=== PATIENT | male | born 1985 | race Caucasian/White ===

== ENCOUNTER 2017-04-15 12:58 | Emergency (ER) | payer OTHER ==
[2017-04-15 13:05] VITALS: BP 143/92
--- NOTE | 2017-04-15 13:40 | ER Document Report ---
HPI - HPI Patient complains to provider of: medications refill Onset: Yesterday Quality of pain: No pain Pain Level: Denies Context: 31-year-old male presents to ED for refill on clonazepam and Seroquel. Instructed patient we do not usually fill these but he states he is completely out and cannot give more until Sunday. I have written him a prescription for 2 days of each. Associated Symptoms: Other - He states he took his last Seroquel and clonazepam Sunday. I get them refilled until Sunday when he can go and see his primary doctor Exacerbated by: Denies Relieved by: Denies Similar symptoms previously: Yes Recently seen / treated by doctor: No - ROS ROS below otherwise negative: Yes - CONSTITUTIONAL Constitutional: DENIES: Fever, Chills - EENT EENT: DENIES: Sore Throat, Ear Pain, Nasal Drainage-Clear, Nasal Drainage- Purulent, Congestion, Eye problems - NEURO Neurology: DENIES: Headache, Weakness, Vision blurred, Dizzinesss / Vertigo - CARDIOVASCULAR Cardiovascular: DENIES: Chest pain - RESPIRATORY Respiratory: DENIES: Trouble Breathing, Coughing - GASTROINTESTINAL Gastrointestinal: DENIES: Abdominal Pain, Nausea, Patient vomiting, Diarrhea, Constipation, Black / Bloody Stools - URINARY Urinary: DENIES: Dysuria, Urgency, Frequency - REPRODUCTIVE Reproductive: DENIES: :, Postmenopausal, Abnormal bleeding / discharge - MUSCULOSKELETAL Musculoskeletal: DENIES: Extremity pain, Back Pain, Neck Pain, Swelling - DERM Skin Color: Normal Skin Problems: None Past Medical History - General Information source: Patient - Social History Smoking Status: Current Every Day Smoker Cigarette use (# per day): Yes Smoking Education Provided: Yes - less than 2 min Frequency of alcohol use: None Drug Abuse: None Occupation: disabled Lives with: Friend Family History: CVA, Malignancy Patient has suicidal ideation: No Patient has homicidal ideation: No - Past Medical History Cardiac Medical History: Reports: None Pulmonary Medical History: Reports: None Neurological Medical History: Reports: Hx Seizures Endocrine Medical History: Reports: None Renal/ Medical History: Reports: None Malignancy Medical History: Reports None GI Medical History: Reports: Hx Gastroesophageal Reflux Disease Musculoskeltal Medical History: Reports Hx Musculoskeletal Deformity Skin Medical History: Reports None Psychiatric Medical History: Reports: Hx Post Traumatic Stress Disorder Traumatic Medical History: Reports: Hx Traumatic Brain Injury Infectious Medical History: Reports: None Surgical Hx: Negative Past Surgical History: Reports: None Vertical Provider Document - CONSTITUTIONAL Agree With Documented VS: Yes Exam Limitations: No Limitations General Appearance: WD/WN - INFECTION CONTROL TRAVEL OUTSIDE OF THE [place] IN LAST 30 DAYS: No - HEENT HEENT: Atraumatic, Normal ENT Exam, Normocephalic, PERRLA - NECK Neck: Normal Inspection - RESPIRATORY O2 Sat by Pulse Oximetry: 100 - CARDIOVASCULAR Cardiovascular: Regular Rate, Regular Rhythm - GI/ABDOMEN Gastrointestinal: Abdomen Soft, Abdomen Non-Tender, Abdomen Tender, No Organomegaly - MUSCULOSKELETAL/EXTREMETIES Musculoskeletal/Extremeties: JANINE MIGUEL - NEURO Level of Consciousness: Awake, Alert, Appropriate Motor/Sensory: No Motor Deficit, No Sensory Deficit Deep Tendon Reflexes: 2+ - DERM Integumentary: Warm, Dry, No Rash Course - Re-evaluation Re-evalutation: 04/15/17 14:09 I dated in [place] called for the clonazepam prescription they stated his prescription was 1 mg twice daily. He was written for 2 days supply. Rom in [place] was called for Seroquel prescription. they stated he had filled a prescription for 300 mg nightly 2 day supply of that was written. Patient is [facility] to get further medications. - Vital Signs Vital signs: Temp Pulse Resp BP Pulse Ox 98.3 F 97 18 143/92 H 100 04/15/17 13:02 04/15/17 13:02 04/15/17 13:02 04/15/17 13:02 04/15/17 13:02 Discharge - Discharge Clinical Impression: Encounter for medication refill Additional Instructions: You were seen today because she states you are out of her clonazepam and Seroquel states she could refill both of these on Tuesdays at your primary doctor. He will be given a 2 day supply of these 2 medication. FOLLOW-UP CARE: Call your primary doctor first thing Sunday morning and get an appointment to refill your prescriptions able to give you enough for today and tomorrow If you have been referred to a physician for follow-up care, call the physician s office for an appointment as you were instructed or within the next two days. If you experience worsening or a significant change in your symptoms, notify the physician immediately or return to the Emergency Department at any time for re-evaluation. Prescriptions: Quetiapine Fumarate [Seroquel] 300 mg PO QHS #2 tablet Clonazepam [Klonopin] 1 mg PO BID #5 tablet Forms: Elevated Blood Pressure, Smoking Cessation Education
== END 2017-04-15 13:59 | disposition home or self-care (01) ==
LOC: ER 12:58
DX: Z76.0 Encounter for issue of repeat prescription (principal); F43.10 Post-traumatic stress disorder, unspecified; F17.210 Nicotine dependence, cigarettes, uncomplicated
CPT/HCPCS: 99281

== ENCOUNTER 2017-04-27 14:45 | Emergency (ER) | payer OTHER ==
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
[2017-04-27 16:23] LABS: ABSOLUTE EOSINOPHILS # (AUTO) 0.1 10^3/uL (0.0-0.6); ABSOLUTE LYMPHOCYTES (AUTO) 2.4 10^3/uL (0.5-4.7); ABSOLUTE MONOCYTES (AUTO) 0.4 10^3/uL (0.1-1.4); ABSOLUTE NEUT (AUTO) 4.5 10^3/uL (1.7-8.2); BASOPHILS % (AUTO) 0.7 % (0-2); EOSINOPHILS % (AUTO) 1.2 % (0-6); HEMATOCRIT 39.6 % (37.9-51.0); HEMOGLOBIN 13.7 g/dL (13.5-17.0); HGB HCT DIFFERENCE 1.5; MEAN CORPUSCULAR HEMOGLOBIN 31.8 pg (27.0-33.4); MEAN CORPUSCULAR HGB CONC 34.5 g/dL (32.0-36.0); MEAN CORPUSCULAR VOLUME 92 fl (80-97); MONOCYTES % (AUTO) 5.3 % (3-13); RED CELL DISTRIBUTION WIDTH 14.1 % (11.5-14.0); SEGMENTED NEUTROPHILS % (AUTO) 60.8 % (42-78); WHITE BLOOD COUNT 7.4 10^3/uL (4.0-10.5)
--- NOTE | 2017-04-27 16:33 | RADIOLOGY REPORT (SQ) ---
EXAM DESCRIPTION: CT HEAD WITHOUT COMPLETED DATE/TIME: 04/27/2017 4:08 pm REASON FOR STUDY: ams COMPARISON: None. TECHNIQUE: Axial images acquired through the brain without intravenous contrast. Images reviewed wi th bone, brain and subdural windows. Images stored on PACS. All CT scanners at this facility use dose modulation, iterative reconstruction, and/or weight based d osing when appropriate to reduce radiation dose to as low as reasonably achievable (ALARA). [facility]: Dose Right [facility]: CareDose [facility]: Dose Right [facility]: Teradose 4D [facility]: [employer] RADIATION DOSE: 131.66 mGy. LIMITATIONS: None. FINDINGS: VENTRICLES: Normal size and contour. CEREBRUM: No masses. No hemorrhage. No midline shift. Normal franklin/white matter differentiation. N o evidence for acute infarction. CEREBELLUM: No masses. No hemorrhage. No alteration of density. No evidence for acute infarction. EXTRAAXIAL SPACES: No fluid collections. No masses. ORBITS AND GLOBE: No intra- or extraconal masses. Normal contour of globe without masses. CALVARIUM: No fracture. PARANASAL SINUSES: There is deformity of the left maxillary antra. This could be congenital in natur e or be related to a prior infectious process or be posttraumatic in nature. SOFT TISSUES: No mass or hematoma. OTHER: No other significant finding. IMPRESSION: NORMAL BRAIN CT WITHOUT CONTRAST. TECHNICAL DOCUMENTATION: JOB ID: [id number] Quality ID # [id number]: Final reports with documentation of one or more dose reduction techniques (e.g., Au tomated exposure control, adjustment of the mA and/or kV according to patient size, use of iterative reconstruction technique) 2010 [employer]- All Rights Reserved
[2017-04-27 16:38] LABS: ALANINE AMINOTRANSFERASE 22 U/L (21-72); ALBUMIN 4.6 g/dL (3.5-5.0); ALCOHOL 83 mg/dL (NONE DETECTED); ALKALINE PHOSPHATASE 69 U/L (38-126); ANION GAP 17 (5-19); ASPARTATE AMINO TRANSFERASE 17 U/L (17-59); BILIRUBIN,DIRECT 0.3 mg/dL (0.0-0.4); BILIRUBIN,TOTAL 0.5 mg/dL (0.2-1.3); BLOOD UREA NITROGEN 12 mg/dL (7-20); CALCIUM 9.4 mg/dL (8.4-10.2); CARBON DIOXIDE 20 mmol/L (22-30); CHLORIDE 109 mmol/L (98-107); GLUCOSE 79 mg/dL (75-110); POTASSIUM 4.2 mmol/L (3.6-5.0); SODIUM 145.6 mmol/L (137-145); TOTAL PROTEIN 7.5 g/dL (6.3-8.2)
[2017-04-27] MEDS ORDERED: NORMAL SALINE 1000 ML 1,000 ML IV ONE (17:03)
[2017-04-27 17:20] LABS: APPEARANCE,URINE CLEAR; BILIRUBIN,URINE NEGATIVE (NEGATIVE); GLUCOSE, URINE NEGATIVE (NEGATIVE); KETONES,URINE NEGATIVE (NEGATIVE); LEUKOCYTE ESTERASE,URINE NEGATIVE (NEGATIVE); NITRITE,URINE NEGATIVE (NEGATIVE); PROTEIN,URINE NEGATIVE (NEGATIVE); URINE SPECIFIC GRAVITY 1.011; UROBILINOGEN,URINE NEGATIVE mg/dL (<2.0)
[2017-04-27 17:21] VITALS: BP 120/85
[2017-04-27 17:35] LABS: URINE BARBITURATES SCREEN NEGATIVE; URINE METHADONE SCREEN NEGATIVE; URINE OPIATES LOW NEGATIVE; URINE PHENCYCLIDINE SCREEN NEGATIVE
[2017-04-27] MEDS ORDERED: NAPROXEN 250 MG TABLET PO ONE (18:22)
--- NOTE | 2017-04-30 09:26 | EKG REPORT ---
SEVERITY:- NORMAL ECG - SINUS RHYTHM : Confirmed by: Froilan Willingham 30-Apr-2017 09:25:43
== END 2017-04-27 18:47 | disposition home or self-care (01) ==
LOC: ER 14:45
DX: F19.10 Other psychoactive substance abuse, uncomplicated (principal); F10.10 Alcohol abuse, uncomplicated; R41.82 Altered mental status, unspecified; Z79.899 Other long term (current) drug therapy; F17.200 Nicotine dependence, unspecified, uncomplicated
CPT/HCPCS: 93005; 99285; 96360; 36415; 80307 ×4; 85025; 80053; 81001; 70450; 93010; J7030

== ENCOUNTER 2017-05-20 10:54 | Emergency (ER) | payer OTHER ==
[2017-05-20 11:01] VITALS: BP 129/86
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
== END 2017-05-20 12:33 | disposition home or self-care (01) ==
LOC: ER 10:54
DX: Z76.0 Encounter for issue of repeat prescription (principal); F43.10 Post-traumatic stress disorder, unspecified; F41.9 Anxiety disorder, unspecified; F17.200 Nicotine dependence, unspecified, uncomplicated; Z87.820 Personal history of traumatic brain injury
CPT/HCPCS: 99281

== ENCOUNTER 2017-05-30 07:04 | Emergency (ER) | payer OTHER ==
[2017-05-30] MEDS ORDERED: NORMAL SALINE 1000 ML 1,000 ML IV PRN (07:20)
[2017-05-30 08:01] LABS: ABSOLUTE EOSINOPHILS # (AUTO) 0.1 10^3/uL (0.0-0.6); ABSOLUTE LYMPHOCYTES (AUTO) 1.8 10^3/uL (0.5-4.7); ABSOLUTE MONOCYTES (AUTO) 0.4 10^3/uL (0.1-1.4); ABSOLUTE NEUT (AUTO) 4.3 10^3/uL (1.7-8.2); BASOPHILS % (AUTO) 0.2 % (0-2); EOSINOPHILS % (AUTO) 1.7 % (0-6); HEMATOCRIT 43.4 % (37.9-51.0); HEMOGLOBIN 14.6 g/dL (13.5-17.0); HGB HCT DIFFERENCE 0.4; LYMPHOCYTES % (AUTO) 27.7 % (13-45); MEAN CORPUSCULAR HEMOGLOBIN 32.1 pg (27.0-33.4); MEAN CORPUSCULAR HGB CONC 33.5 g/dL (32.0-36.0); MEAN CORPUSCULAR VOLUME 96 fl (80-97); MONOCYTES % (AUTO) 5.6 % (3-13); RED BLOOD COUNT 4.54 10^6/uL (4.35-5.55); RED CELL DISTRIBUTION WIDTH 15.6 % (11.5-14.0); SEGMENTED NEUTROPHILS % (AUTO) 64.8 % (42-78); WHITE BLOOD COUNT 6.6 10^3/uL (4.0-10.5)
[2017-05-30 08:17] LABS: ALANINE AMINOTRANSFERASE 35 U/L (21-72); ALBUMIN 5.1 g/dL (3.5-5.0); ALKALINE PHOSPHATASE 74 U/L (38-126); ANION GAP 16 (5-19); ASPARTATE AMINO TRANSFERASE 30 U/L (17-59); BILIRUBIN,DIRECT 0.4 mg/dL (0.0-0.4); BILIRUBIN,TOTAL 0.5 mg/dL (0.2-1.3); BLOOD UREA NITROGEN 14 mg/dL (7-20); CALCIUM 10.1 mg/dL (8.4-10.2); CARBON DIOXIDE 22 mmol/L (22-30); CHLORIDE 106 mmol/L (98-107); CREATININE RESULT 1.09 mg/dL (0.52-1.25); GLUCOSE 75 mg/dL (75-110); POTASSIUM 4.6 mmol/L (3.6-5.0); SODIUM 143.5 mmol/L (137-145); TOTAL PROTEIN 8.3 g/dL (6.3-8.2)
[2017-05-30 08:18] LABS: ALCOHOL < 10 mg/dL (NONE DETECTED)
--- NOTE | 2017-05-30 08:21 | RADIOLOGY REPORT (SQ) ---
EXAM DESCRIPTION: CT HEAD WITHOUT COMPLETED DATE/TIME: 05/30/2017 8:04 am REASON FOR STUDY: ams hx of tbi COMPARISON: 04/27/2017 TECHNIQUE: Axial images acquired through the brain without intravenous contrast. Images reviewed wi th bone, brain and subdural windows. Images stored on PACS. All CT scanners at this facility use dose modulation, iterative reconstruction, and/or weight based d osing when appropriate to reduce radiation dose to as low as reasonably achievable (ALARA). [facility]: Dose Right [facility]: CareDose [facility]: Dose Right [facility]: Teradose 4D [facility]: [employer] RADIATION DOSE: Up-to-date CT equipment and radiation dose reduction techniques were employed. CTDIv ol: 64.6 mGy. DLP: 2326 mGy-cm. mGy. LIMITATIONS: Patient motion FINDINGS: VENTRICLES: Normal size and contour. CEREBRUM: No masses. No hemorrhage. No midline shift. Normal franklin/white matter differentiation. N o evidence for acute infarction. CEREBELLUM: No masses. No hemorrhage. No alteration of density. No evidence for acute infarction. EXTRAAXIAL SPACES: No fluid collections. No masses. ORBITS AND GLOBE: No intra- or extraconal masses. Normal contour of globe without masses. CALVARIUM: No fracture. PARANASAL SINUSES: There is deformity of the left maxillary sinus. This is not acute. SOFT TISSUES: No mass or hematoma. OTHER: No other significant finding. IMPRESSION: There is no acute intracranial pathology. The study is slightly limited. TECHNICAL DOCUMENTATION: JOB ID: [id number] Quality ID # [id number]: Final reports with documentation of one or more dose reduction techniques (e.g., Au tomated exposure control, adjustment of the mA and/or kV according to patient size, use of iterative reconstruction technique) 2010 [employer]- All Rights Reserved
[2017-05-30 08:38] LABS: VENOUS BLOOD BASE EXCESS -2.7 mmol/L; VENOUS BLOOD HCO3 22.5 mmol/L (20-32); VENOUS BLOOD PCO2 40.6 mmHg (35-63); VENOUS BLOOD PH 7.36 (7.30-7.42)
[2017-05-30 08:50] LABS: APPEARANCE,URINE CLEAR; BILIRUBIN,URINE NEGATIVE (NEGATIVE); GLUCOSE, URINE NEGATIVE (NEGATIVE); KETONES,URINE TRACE mg/dL (NEGATIVE); LEUKOCYTE ESTERASE,URINE NEGATIVE (NEGATIVE); NITRITE,URINE NEGATIVE (NEGATIVE); PROTEIN,URINE NEGATIVE (NEGATIVE); URINE SPECIFIC GRAVITY 1.005; UROBILINOGEN,URINE NEGATIVE mg/dL (<2.0)
[2017-05-30 09:07] LABS: URINE BARBITURATES SCREEN NEGATIVE; URINE METHADONE SCREEN NEGATIVE; URINE OPIATES LOW NEGATIVE; URINE PHENCYCLIDINE SCREEN NEGATIVE
--- NOTE | 2017-05-30 10:07 | ER Document Report ---
ED General - General Chief Complaint: Altered Mental Status Stated Complaint: POSSIBLE OVERDOSE Time Seen by Provider: 05/30/17 07:20 TRAVEL OUTSIDE OF THE [place] IN LAST 30 DAYS: No - HPI Patient complains to provider of: Overdose Notes: Patient coming in after being found by local police department swerving while driving his car. Patient had an blood alcohol level of 100 however was altered therefore was brought to the emergency room for further evaluation. 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 Otherwise patient is maintaining his airway GCS of 14 due to confusion. Moving all 4 extremities no signs of any obvious distress at this time - Related Data Allergies/Adverse Reactions: No Known Allergies Allergy (Verified 05/20/17 11:00) Past Medical History - Social History Smoking Status: Unknown if Ever Smoked Family History: CVA, Malignancy Neurological Medical History: Reports: Hx Seizures Renal/ Medical History: Denies: Hx Peritoneal Dialysis GI Medical History: Reports: Hx Gastroesophageal Reflux Disease Musculoskeltal Medical History: Reports Hx Musculoskeletal Deformity Psychiatric Medical History: Reports: Hx Post Traumatic Stress Disorder Traumatic Medical History: Reports: Hx Traumatic Brain Injury - Immunizations Hx Diphtheria, Pertussis, Tetanus Vaccination: Yes Review of Systems - Review of Systems -: Yes ROS unobtainable due to patient's medical condition - Overdose altered mental state Physical Exam - Vital signs Vitals: Resp Pulse Ox 16 97 05/30/17 07:11 05/30/17 07:11 Interpretation: Normal - General General appearance: Appears well, Alert - HEENT Head: Normocephalic, Atraumatic Eyes: Normal Pupils: PERRL - Respiratory Respiratory status: No respiratory distress Chest status: Nontender Breath sounds: Normal Chest palpation: Normal - Cardiovascular Rhythm: Regular Heart sounds: Normal auscultation Murmur: No - Abdominal Inspection: Normal Distension: No distension Bowel sounds: Normal Tenderness: Nontender Organomegaly: No organomegaly - Back Back: Normal, Nontender - Extremities General upper extremity: Normal inspection, Nontender, Normal color, Normal ROM , Normal temperature General lower extremity: Normal inspection, Nontender, Normal color, Normal ROM , Normal temperature, Normal weight bearing. No: Charles's sign - Neurological Neuro grossly intact: Yes Cognition: Normal Orientation: AAOx4 Barry Coma Scale Eye Opening: Spontaneous [place] Coma Scale Verbal: Oriented Barry Coma Scale Motor: Obeys Commands Barry Coma Scale Total: 15 Speech: Normal Motor strength normal: LUE, RUE, LLE, RLE Sensory: Normal - Psychological Associated symptoms: Normal affect, Normal mood - Skin Skin Temperature: Warm Skin Moisture: Dry Skin Color: Normal Course - Re-evaluation Re-evalutation: 05/30/17 13:37 Patient coming in for evaluation of altered mental state. Patient with GCS of 14 initially. After a brief period observation patient now ambulatory requesting to leave patient on GCS 15 ANO 4. Patient does admit to taking Xanax and alcohol. Patient denies any other drug abuse. Patient was encouraged to stay a little longer as though he was walking patient did have some staggering. Patient was observed for approximately 1 hour longer workup may need to leave at this time patient ANO 4 has improved his gait patient now has provide a urine sample was positive for marijuana and cocaine. A review of the patient's narcotic database does reveal he recently received a prescription for Klonopin and Soma. Patient. Patient's presentation does coincide with soma alcohol abuse. Patient denies any suicidal homicidal ideation at this time. Patient is manually. Patient will be discharged home. Patient previous prescriber of Nabil Olga PA of when the local clinics was contacted and that he was last prescribed for the patient. Patient has multiple prescribers for controlled substances. I did explain to the provider that patient has been seen now twice for medical refills and now twice for overdoses of medications. Nabil was appreciative of this information. 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 Ferrer - Vital Signs Vital signs: Temp Pulse Resp BP Pulse Ox 98.3 F 100 14 113/89 H 99 05/30/17 10:20 05/30/17 10:20 05/30/17 10:20 05/30/17 10:20 05/30/17 10:20 - Laboratory Result Diagrams: 05/30/17 07:41 05/30/17 07:41 Laboratory results interpreted by me: 05/30/17 05/30/17 05/30/17 07:41 07:41 08:18 RDW 15.6 H Total Protein 8.3 H Albumin 5.1 H Urine Ketones TRACE H Salicylates < 1.0 L Acetaminophen < 10 L Discharge - Discharge Clinical Impression: Unintentional polysubstance overdose Condition: Good Disposition: HOME, SELF-CARE Instructions: Instructions for Home Care Following a Drug Overdose ([facility]), Overdose ([facility]) Additional Instructions: Follow-up with your primary care physician for further evaluation. Stop using cocaine Stop using marijuana Stop taking your medications with alcohol
[2017-05-30 10:21] VITALS: BP 113/89
--- NOTE | 2017-05-30 13:07 | EKG REPORT ---
SEVERITY:- NORMAL ECG - SINUS RHYTHM : Confirmed by: Emerson Workman MD 30-May-2017 13:06:57
== END 2017-05-30 10:21 | disposition home or self-care (01) ==
LOC: ER 07:04
DX: T42.4X1A Poisoning by benzodiazepines, accidental (unintentional), initial encounter (principal); T51.91XA Toxic effect of unspecified alcohol, accidental (unintentional), initial encounter; F43.10 Post-traumatic stress disorder, unspecified; Z87.820 Personal history of traumatic brain injury
CPT/HCPCS: 36415; 70450; 80053; 80307; 81001; 82803; 83605; 85025; 93005; 93010; 99285

== ENCOUNTER 2017-06-09 09:45 | Emergency (ER) | payer OTHER ==
[2017-06-09] MEDS ORDERED: RINGERS SOLUTION,LACTATED 1,000 ML IV ONE (10:11)
--- NOTE | 2017-06-09 10:12 | ER Document Report ---
ED Substance Abuse / Acc. OD - General Mode of Arrival: Ambulatory Information source: Patient TRAVEL OUTSIDE OF THE [place] IN LAST 30 DAYS: No - HPI Patient complains to provider of: Alcohol withdrawal Onset: This morning Onset/Duration: Gradual Associated Symptoms: Nausea/vomiting, Tremors Similar symptoms previously: Yes Recently seen / treated by doctor: Yes <ADRIANA BOLAND - Last Filed: 06/09/17 10:38> <CM SOTO - Last Filed: 06/09/17 11:29> - General Chief Complaint: Alcohol Withdrawl Stated Complaint: WITHDRAWAL Time Seen by Provider: 06/09/17 10:09 Notes: Patient is a 31 year old male presenting to the emergency department for alcohol withdrawal and vomiting. Patient states he woke up this morning " feeling EtOH withdrawal." Patient states his "body is having a fit on the inside." Patient has had a seizure in the past but not recently. Patient's last EtOH was at 3:00 of 4:00. Patient started shaking and could not take another drink of EtOH because he was vomiting. Patient states he cannot "put the beer down any longer." Patient states he is not going to have an "ah corea" moment. Patient states he just recently got out of a treatment center for EtOH withdrawal. Patient states he has used Librium in the past but does not currently have any. Patient states he has been at several in-patient/out- patient treatment centers. 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 Patient takes Xanax. Patient has no known allergies. (ADRIANA BOLAND) - Related Data Allergies/Adverse Reactions: No Known Allergies Allergy (Verified 06/09/17 09:57) Past Medical History - General Information source: Patient - Social History Smoking Status: Never Smoker Cigarette use (# per day): No Chew tobacco use (# tins/day): No Smoking Education Provided: No Frequency of alcohol use: Heavy Drug Abuse: Marijuana Family History: Reviewed & Not Pertinent, CVA, Malignancy Patient has suicidal ideation: No Patient has homicidal ideation: No Neurological Medical History: Reports: Hx Seizures, Other - TBI GI Medical History: Reports: Hx Gastroesophageal Reflux Disease Musculoskeltal Medical History: Reports Hx Musculoskeletal Deformity Psychiatric Medical History: Reports: Hx Post Traumatic Stress Disorder Traumatic Medical History: Reports: Hx Traumatic Brain Injury Past Surgical History: Reports: None - Immunizations Hx Diphtheria, Pertussis, Tetanus Vaccination: Yes <KYAADRIANA - Last Filed: 06/09/17 10:38> Review of Systems - Review of Systems Constitutional: No symptoms reported EENT: No symptoms reported Cardiovascular: No symptoms reported Respiratory: No symptoms reported Gastrointestinal: See HPI, Nausea, Vomiting Genitourinary: No symptoms reported Male Genitourinary: No symptoms reported Musculoskeletal: No symptoms reported Skin: No symptoms reported Hematologic/Lymphatic: No symptoms reported Neurological/Psychological: See HPI -: Yes All other systems reviewed and negative <ADRIANA BOLAND - Last Filed: 06/09/17 10:38> Physical Exam - Vital signs Interpretation: Normal <ADRIANA BOLAND - Last Filed: 06/09/17 10:38> <CM SOTO - Last Filed: 06/09/17 11:29> - Vital signs Vitals: Temp Pulse Resp BP Pulse Ox 98.2 F 106 H 18 130/96 H 96 06/09/17 09:46 06/09/17 09:46 06/09/17 09:46 06/09/17 09:46 06/09/17 09:46 - Notes Notes: GENERAL: Alert, interacts well, patient wearing mask in room. Mild distress. HEAD: Normocephalic, atraumatic. EYES: Appear normal. Pupils equal, round, and reactive to light. ENT: Moist mucus membranes, tongue midline. NECK: Full range of motion. Supple. Trachea midline. LUNGS: Clear to auscultation bilaterally, no wheezes, rales, or rhonchi. No respiratory distress. HEART: Regular rate and rhythm. No murmurs, gallops, or rubs. ABDOMEN: Soft, non-tender. Non-distended. Normal bowel sounds. EXTREMITIES: Moves all 4 extremities spontaneously. Normal strength. No edema. NEUROLOGICAL: Alert and oriented x3. Normal speech. No focal neurological deficits. GSC 15. PSYCH: Normal affect, normal mood. SKIN: Warm, dry, normal turgor. No rashes or lesions noted. (ADRIANA BOLAND) Course - Laboratory Result Diagrams: 06/09/17 10:01 06/09/17 10:01 <ADRIANA BOLAND - Last Filed: 06/09/17 10:38> - Laboratory Result Diagrams: 06/09/17 10:01 06/09/17 10:01 <CM SOTO - Last Filed: 06/09/17 11:29> - Re-evaluation Re-evalutation: 06/09/17 10:28 Patient presents emergency department not feeling well. He has a history of alcoholism and is a fairly heavy drinker. Last drink was 3:00 this morning he said he started feeling like he was getting funny and felt like he was can go to withdrawal and was concerned because he could not drink anymore alcohol because he was vomiting. He was here recently seen and evaluated after being pulled over by the police for appearing intoxicated blood alcohol was 100 but he is also under the influence of Xanax. In addition to that as a total brain injury. He states that he just got out of withdrawal treatment center in [place] but states that that did not help. Has had seizures in the past but denies any currently. No headache blurred vision double vision chest pain shortness of breath he is not actively vomiting and no diarrhea. On examination he is mildly tachycardic at 106 blood pressure stable he is afebrile and not tachypneic. He is well-appearing nontoxic no acute distress with normal mental status no neurological deficits. Went ahead and ordered labs on him IV fluids and magnesium, as well as the Ativan. 06/09/17 11:25 Was stable labs fluids hydrated actually eating and drinking something right now. Request to Seroquel to get out to on Sunday says he takes in the evening also giving him a dose of Librium. Can go to the walk-in clinic on Sunday and discussed reasons for ED follow-up sooner. (CM SOTO) - Vital Signs Vital signs: Temp Pulse Resp BP Pulse Ox 98.2 F 106 H 18 130/96 H 96 06/09/17 09:46 06/09/17 09:46 06/09/17 09:46 06/09/17 09:46 06/09/17 09:46 - Laboratory Laboratory results interpreted by me: 06/09/17 06/09/17 06/09/17 10:01 10:01 10:01 RDW 14.8 H Carbon Dioxide 21 L Glucose 130 H Total Protein 8.7 H Albumin 5.4 H Urine Protein 100 H - EKG Interpretation by Me Additional EKG results interpreted by me: 06/09/17 11:08 EKG interpreted by myself to reveal sinus rhythm at [address] segment elevation or depression (CM SOTO) Discharge <ADRIANA BOLAND - Last Filed: 06/09/17 10:38> <CM OSTO - Last Filed: 06/09/17 11:29> - Discharge Clinical Impression: Alcoholism Condition: Stable Disposition: HOME, SELF-CARE Additional Instructions: Alcohol Your symptoms are caused by alcohol withdrawal. After a period of frequent drinking, the brain and body are changed by the alcohol. When you quit or reduce your drinking, the nervous system becomes unstable. Withdrawal symptoms can start a few hours after your last drink, but sometimes don't begin until a couple of days later. Symptoms can include shakiness, sweating, insomnia, nausea , vomiting, fearfulness, hallucinations, and seizures. In addition to the acute effects of alcohol withdrawal, we often have to deal with the medical effects of alcoholism. These problems often include dehydration, stomach irritation, intestinal bleeding, low blood sugar, liver disease, and pancreas inflammation. Treatment for alcohol withdrawal includes mild sedatives, vitamins, and fluids. You need to be with someone who can help if symptoms become severe. Many patients can withdraw at home. Admission to the hospital or a detox facility may be necessary if withdrawal symptoms are severe and uncontrollable. Abstaining from alcohol is the only effective long-term treatment. If you start drinking again, you will not be able to control yourself after the first drink. Treatment programs are available. In addition, many alcoholics benefit from Alcoholics Anonymous or other support groups available through your counselor or adventist resident assistant cna. [facility] and ALA-TE[facility] are support groups for friends and family members of an alcoholic. Go to the emergency room if you develop persistent vomiting, severe abdominal pain, fever, shortness of breath, hallucinations, uncontrollable tremors, or seizures. Prescriptions: Quetiapine Fumarate [Seroquel 100 mg Tablet] 100 mg PO QHS #3 tablet Chlordiazepoxide HCl [Librium 10 mg Capsule] 1 cap PO QID #6 cap Scribe Documentation - Scribe Written by Frances:: Frances Roberson 06/09/17 10:42 acting as scribe for :: Tono <ADRIANA BOLAND - Last Filed: 06/09/17 10:38>
[2017-06-09] MEDS ORDERED: ONDANSETRON 4 MG TAB.RAPDIS PO ONE (10:21)
[2017-06-09] MEDS ORDERED: LORAZEPAM INJ 2 MG/1 ML VIAL IV ONE (10:21)
[2017-06-09 10:27] LABS: ABSOLUTE EOSINOPHILS # (AUTO) 0.1 10^3/uL (0.0-0.6); ABSOLUTE LYMPHOCYTES (AUTO) 2.6 10^3/uL (0.5-4.7); ABSOLUTE MONOCYTES (AUTO) 0.3 10^3/uL (0.1-1.4); ABSOLUTE NEUT (AUTO) 4.6 10^3/uL (1.7-8.2); BASOPHILS % (AUTO) 0.4 % (0-2); EOSINOPHILS % (AUTO) 1.4 % (0-6); MEAN CORPUSCULAR HEMOGLOBIN 32.9 pg (27.0-33.4); MEAN CORPUSCULAR HGB CONC 34.7 g/dL (32.0-36.0); MEAN CORPUSCULAR VOLUME 95 fl (80-97); MONOCYTES % (AUTO) 3.8 % (3-13); RED BLOOD COUNT 4.85 10^6/uL (4.35-5.55); RED CELL DISTRIBUTION WIDTH 14.8 % (11.5-14.0); SEGMENTED NEUTROPHILS % (AUTO) 60.4 % (42-78); WHITE BLOOD COUNT 7.6 10^3/uL (4.0-10.5)
[2017-06-09 10:44] LABS: ALANINE AMINOTRANSFERASE 29 U/L (21-72); ALBUMIN 5.4 g/dL (3.5-5.0); ALCOHOL 68 mg/dL (NONE DETECTED); ALKALINE PHOSPHATASE 88 U/L (38-126); ANION GAP 17 (5-19); ASPARTATE AMINO TRANSFERASE 23 U/L (17-59); BILIRUBIN,DIRECT 0.3 mg/dL (0.0-0.4); BILIRUBIN,TOTAL 0.4 mg/dL (0.2-1.3); BLOOD UREA NITROGEN 10 mg/dL (7-20); CALCIUM 9.6 mg/dL (8.4-10.2); CARBON DIOXIDE 21 mmol/L (22-30); CHLORIDE 105 mmol/L (98-107); CREATININE RESULT 0.96 mg/dL (0.52-1.25); GLUCOSE 130 mg/dL (75-110); MAGNESIUM 1.9 mg/dL (1.6-2.3); POTASSIUM 4.4 mmol/L (3.6-5.0); SODIUM 142.9 mmol/L (137-145); TOTAL PROTEIN 8.7 g/dL (6.3-8.2)
[2017-06-09 10:55] LABS: CREATINE KINASE MB 1.54 ng/mL (<4.55)
[2017-06-09 10:57] LABS: TROPONIN I < 0.012 ng/mL
[2017-06-09 11:10] LABS: APPEARANCE,URINE CLEAR; BILIRUBIN,URINE NEGATIVE (NEGATIVE); GLUCOSE, URINE NEGATIVE (NEGATIVE); KETONES,URINE NEGATIVE (NEGATIVE); LEUKOCYTE ESTERASE,URINE NEGATIVE (NEGATIVE); NITRITE,URINE NEGATIVE (NEGATIVE); PROTEIN,URINE 100 mg/dL (NEGATIVE); UROBILINOGEN,URINE NEGATIVE mg/dL (<2.0)
[2017-06-09 11:18] LABS: URINE BARBITURATES SCREEN NEGATIVE; URINE METHADONE SCREEN NEGATIVE; URINE OPIATES LOW NEGATIVE; URINE PHENCYCLIDINE SCREEN NEGATIVE
[2017-06-09 11:50] VITALS: BP 119/80
--- NOTE | 2017-06-10 13:39 | EKG REPORT ---
SEVERITY:- NORMAL ECG - SINUS RHYTHM : Confirmed by: Mariia Michelle MD 10-Jun-2017 13:38:50
== END 2017-06-09 11:50 | disposition home or self-care (01) ==
LOC: ER 09:45
DX: F10.239 Alcohol dependence with withdrawal, unspecified (principal); R11.2 Nausea with vomiting, unspecified; R25.1 Tremor, unspecified; R00.0 Tachycardia, unspecified; Z87.820 Personal history of traumatic brain injury
CPT/HCPCS: 93005; 99285; 96374; 36415; 82553; 80307 ×2; 83735; 85025; 80053; 81001; 84484; 93010; S0119; J2060; J7120

== ENCOUNTER 2017-06-10 13:37 | Emergency (ER) | payer OTHER ==
--- NOTE | 2017-06-10 17:07 | ER Document Report ---
HPI - HPI Pain Level: Denies Notes: Patient is a 31-year-old male with a history of PTSD anxiety who presents the ED and request a medication refill for Seroquel and Librium. Patient was seen yesterday and given 3 tablets of 100 mg Seroquel along with 6 tablets of 10 mg Librium. Patient states that he normally received 300 mg each night which is why he took off 3 at once yesterday. Patient states that he does have 1 refill left on his Librium which he has to get filled. Patient states that the 10 mg dose is not high enough for him any requesting 25 mg. Patient states that he has been drinking alcohol lately, but has not had any in the last 8 hours and does not want to go into withdrawal which is why he is requesting the medication. No other concerns or complaints. Denies any fever, headache, chest pain, palpitations, feeling, cough, wheeze, shortness breath, abdominal pain, nausea/vomiting/diarrhea, dysuria, muscle aches/joint pains, or rash. - ROS Notes: REVIEW OF SYSTEMS: CONSTITUTIONAL : Denies fever, chills, or sweats. Denies recent illness. EENT: Denies eye, ear, throat, or mouth pain or symptoms. Denies nasal or sinus congestion or discharge. Denies throat, tongue, or mouth swelling or difficulty swallowing. CARDIOVASCULAR: Denies chest pain. Denies palpitations or racing or irregular heart beat. Denies ankle edema. RESPIRATORY: Denies cough, cold, or chest congestion. Denies shortness of breath, difficulty breathing, or wheezing. GASTROINTESTINAL: Denies abdominal pain or distention. Denies nausea, vomiting , or diarrhea. Denies blood in vomitus, stools, or per rectum. Denies black, tarry stools. Denies constipation. GENITOURINARY: Denies difficulty urinating, painful urination, burning, frequency, blood in urine, or discharge. MUSCULOSKELETAL: Denies back or neck pain or stiffness. Denies joint pain or swelling. SKIN: Denies rash, lesions or sores. HEMATOLOGIC : Denies easy bruising or bleeding. LYMPHATIC: Denies swollen, enlarged glands. NEUROLOGICAL: Denies confusion or altered mental status. Denies passing out or loss of consciousness. Denies dizziness or lightheadedness. Denies headache. Denies weakness or paralysis or loss of use of either side. Denies problems with gait or speech. Denies sensory loss, numbness, or tingling. Denies seizures. PSYCHIATRIC: see hpi ALL OTHER SYSTEMS REVIEWED AND NEGATIVE. Dictation was performed using Beisen voice recognition software - REPRODUCTIVE Reproductive: DENIES: : - DERM Skin Color: Normal Past Medical History - Social History Smoking Status: Current Every Day Smoker Family History: CVA, Malignancy Neurological Medical History: Reports: Hx Seizures Renal/ Medical History: Denies: Hx Peritoneal Dialysis GI Medical History: Reports: Hx Gastroesophageal Reflux Disease Musculoskeltal Medical History: Reports Hx Musculoskeletal Deformity Psychiatric Medical History: Reports: Hx Post Traumatic Stress Disorder Traumatic Medical History: Reports: Hx Traumatic Brain Injury - Immunizations Hx Diphtheria, Pertussis, Tetanus Vaccination: Yes Vertical Provider Document - CONSTITUTIONAL Agree With Documented VS: Yes Notes: PHYSICAL EXAMINATION: GENERAL: Well-appearing, well-nourished and in no acute distress. NECK: Normal range of motion, supple without lymphadenopathy LUNGS: Breath sounds clear to auscultation bilaterally and equal. No wheezes rales or rhonchi. HEART: Regular rate and rhythm without murmurs, rubs, gallops. ABDOMEN: Soft, nontender, nondistended abdomen. No guarding, no rebound. No masses appreciated. Normal bowel sounds present. No CVA tenderness bilaterally. Musculoskeletal: ext b/l: FROM to passive/active. Strength 5+/5. Extremities: No cyanosis, clubbing, or edema b/l. Peripheral pulses 2+. Capillary refill less than 3 seconds. NEUROLOGICAL: Cranial nerves grossly intact. Normal speech, normal gait. Normal sensory, motor exams PSYCH: Normal mood, normal affect. SKIN: Warm, Dry, normal turgor, no rashes or lesions noted. - INFECTION CONTROL TRAVEL OUTSIDE OF THE [place] IN LAST 30 DAYS: No Course - Re-evaluation Re-evalutation: 06/10/17 17:07 Patient is an afebrile, well-hydrated, 31-year-old male presents the ED and request of medication refill for Seroquel and Librium. Vitals are stable. PE otherwise unremarkable. Patient was evaluated last evening and given 3 100 mg tablets of Seroquel along with 6 tablets of 10 mg Librium. Patient states that he did take all 3 of the Seroquel because that is what he is used to taking at night. Looking back on a previous note I did refill for a 300 mg Seroquel. Patient still has one refill of his Librium left that he was directed to take every 6 hours. Thoroughly reviewed with the patient that I believe that he does have a true problem with medication abuse and alcohol abuse. Advised patient that he should seek an inpatient rehabilitation program. At this time patient does not want to pursue that. Due to his risk factors and current situation, I will prescribe him 1 tablet of Seroquel 300 mg from the ED. I will give him 2 tablets of the 10 mg Librium which should hold him over until he can get his refill tomorrow. Reviewed with the patient that he needs to check in with a mental health clinic for further evaluation and treatment. Patient is not overly thrilled with the amount of medication is going be getting today, but is in agreement. Advised patient to refrain from any alcohol intake. Recheck with PCM in 2-3 days. Return to ED with any worsening/ concerning symptoms are as reviewed in discharge. Patient is in agreement. Discharge - Discharge Clinical Impression: Anxiety Condition: Stable Disposition: HOME, SELF-CARE Additional Instructions: Take medications as directed Avoid drinking alcohol Maintain adequate hydration with water Consider inpatient rehabilitation* Become involved with an outside counseling group Recheck with PCM this week An appointment with a mental health group for further evaluation and treatment Return to the ED with any worsening symptoms and/or development of fever, headache, chest pain, palpitations, syncope, shortness of breath, trouble breathing, abdominal pain, n/v/d, blood in stool/urine, loss of control of bowel /bladder, urinary retention, muscle weakness/paralysis, numbness/tingling, or other worsening symptoms that are concerning to you. Prescriptions: Chlordiazepoxide HCl [Librium 10 mg Capsule] 1 cap PO QID #2 cap Referrals: JAIME WORLEY PA-C [PHYSICIAN [employer]] - Follow up in 3-5 days
[2017-06-10] MEDS ORDERED: QUETIAPINE FUMARATE 100 MG TABLET PO ONE (17:15)
== END 2017-06-10 17:30 | disposition home or self-care (01) ==
LOC: ER 13:37
DX: Z76.0 Encounter for issue of repeat prescription (principal); F41.9 Anxiety disorder, unspecified; Z79.899 Other long term (current) drug therapy; F17.200 Nicotine dependence, unspecified, uncomplicated
CPT/HCPCS: 99281

== ENCOUNTER 2017-06-28 03:45 | Emergency (ER) | payer OTHER ==
[2017-06-28] MEDS ORDERED: QUETIAPINE FUMARATE 100 MG TABLET PO ONE (04:47)
[2017-06-28] MEDS ORDERED: LORAZEPAM 1 MG TABLET PO ONE (04:47)
--- NOTE | 2017-06-28 04:51 | ER Document Report ---
ED General - General Chief Complaint: Alcohol Withdrawl Stated Complaint: POSSIBLE ALCOHOL WITHDRAWAL Time Seen by Provider: 06/28/17 04:27 Notes: Patient is a 31-year-old male who presents with complaint of alcohol withdrawal. He does drink 2 hours ago. He is been seen here a few times over the last several weeks. He usually requests benzodiazepines. 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 Patient says that he started to feel like is going through withdrawal again. He has been at rehab in [place]. He says that he does not feel was helpful. He says that he feels that he needs to do the rehab on his own. He was given resources for outpatient alcohol detox and resources to things such as AA in the past. He says that he does not find this is helpful. He is requesting a refill of his Seroquel. He takes this at night to help him sleep. He takes 300 mg at night. He also mentions that Librium has helped him in the past however he is instead requesting Ativan. Patient has no vomiting. No fevers. No other complaints at this time. No recent seizures. TRAVEL OUTSIDE OF THE [place] IN LAST 30 DAYS: No - Related Data Allergies/Adverse Reactions: No Known Allergies Allergy (Verified 06/28/17 03:51) Home Medications: Current Home Medications Omeprazole 1 tab PO DAILY 06/28/17 [History] Past Medical History - Social History Smoking Status: Current Every Day Smoker Frequency of alcohol use: Heavy Drug Abuse: None Family History: CVA, Malignancy Patient has suicidal ideation: No Patient has homicidal ideation: No Neurological Medical History: Reports: Hx Seizures Renal/ Medical History: Denies: Hx Peritoneal Dialysis GI Medical History: Reports: Hx Gastroesophageal Reflux Disease Musculoskeltal Medical History: Reports Hx Musculoskeletal Deformity Psychiatric Medical History: Reports: Hx Post Traumatic Stress Disorder Traumatic Medical History: Reports: Hx Traumatic Brain Injury - Immunizations Hx Diphtheria, Pertussis, Tetanus Vaccination: Yes Review of Systems - Review of Systems Notes: My Normal Review Basic REVIEW OF SYSTEMS: CONSTITUTIONAL : Denies fever, chills, or sweats. Denies recent illness. EENT: Denies eye, ear, throat, or mouth pain or symptoms. Denies nasal or sinus congestion. CARDIOVASCULAR: Denies chest pain. RESPIRATORY: Denies cough, cold, or chest congestion. Denies shortness of breath, difficulty breathing, or wheezing. GASTROINTESTINAL: Denies abdominal pain. Nausea without vomiting MUSCULOSKELETAL: Denies neck or back pain or joint pain or swelling. SKIN: Denies rash or skin lesions. NEUROLOGICAL: Denies altered mental status or loss of consciousness. Denies headache. Denies weakness or paralysis or loss of use of either side. Denies problems with gait or speech. Denies sensory or motor loss. ALL OTHER SYSTEMS REVIEWED AND NEGATIVE. Physical Exam - Vital signs Vitals: Temp Pulse Resp BP Pulse Ox 98.4 F 103 H 20 139/112 H 96 06/28/17 03:52 06/28/17 03:52 06/28/17 03:52 06/28/17 03:52 06/28/17 03:52 - Notes Notes: General Appearance: Well nourished, alert, cooperative, no acute distress, no obvious discomfort. Well appearing. Vitals: reviewed, See vital signs table. Head: no swelling or tenderness to the head Eyes: PERRL, EOMI, Conjuctiva clear Mouth: No decreasd moisture Lungs: No wheezing, No rales, No rhonci, No accessory muscle use, good air exchange bilaterally. Heart: Normal rate, Regular rythm, No murmur, no rub Abdomen: Normal BS, soft, No rigidity, No abdominal tenderness, No guarding, no rebound, no abdominal masses, no organomegaly Extremities: strength 5/5 in all extremities, good pulses in all extremities, no swelling or tenderness in the extremities, no edema. Skin: warm, dry, appropriate color, no rash Neuro: speech clear, oriented x 3, normal affect, responds appropriately to questions. Patient occasionally will have a slight tremor but that it will go away during my exam. It is not constant. Course - Re-evaluation Re-evalutation: 06/28/17 05:59 Patient is an alcoholic. I suspect he also has some benzodiazepine abuse issues as reviewing his previous records and also his requests for Ativan. I informed him that Ativan is a high abuse potential and there are other medications that work well for alcohol withdrawal. I do think that Librium is a good medication is okay. I will write prescription for Librium. I did talk to him about gabapentin. He says he has used gabapentin in the past but has not helped. Patient later on asked for Phenergan. The nurse informed him that I do not want place him on too many sedating medications at this time and therefore we will do Zofran instead. I strongly encouraged to follow-up with outpatient alcohol rehabilitation resources such as Alcoholics Anonymous. Patient says he rather do this on his own. Patient will be discharged home. Patient encouraged to return to ER if his tremors, intractable vomiting, any seizure-like activity, or if he feels he is getting worse. Dictation of this chart was performed using voice recognition software; therefore, there may be some unintended grammatical errors. - Vital Signs Vital signs: Temp Pulse Resp BP Pulse Ox 98.4 F 103 H 20 139/112 H 96 06/28/17 03:52 06/28/17 03:52 06/28/17 03:52 06/28/17 03:52 06/28/17 03:52 Discharge - Discharge Clinical Impression: Alcohol dependence Qualifiers: Substance use status: unspecified alcohol-induced disorder Qualified Code(s): F10.29 - Alcohol dependence with unspecified alcohol-induced disorder Additional Instructions: Please take medications as prescribed. Please follow-up with your doctor for reevaluation. Please follow-up with outpatient alcohol rehabilitation program such as Alcoholics anonymous. Please return to the ER if you have worsening symptoms of withdrawal, seizures, vomiting, or feel unwell. Prescriptions: Chlordiazepoxide HCl [Librium 25 mg Capsule] 2 cap PO TID #20 capsule Quetiapine Fumarate [Seroquel 100 mg Tablet] 200 mg PO QPM #20 tablet
[2017-06-28] MEDS ORDERED: ONDANSETRON ODT 4 MG TAB (6 TAB/DSPK) PO PRN (05:11)
[2017-06-28 06:18] VITALS: BP 163/79
--- NOTE | 2017-06-30 16:33 | EKG REPORT ---
SEVERITY:- OTHERWISE NORMAL ECG - SINUS TACHYCARDIA : Confirmed by: Froilan Willingham 30-Jun-2017 16:32:50
== END 2017-06-28 05:30 | disposition home or self-care (01) ==
LOC: ER 03:45
DX: F10.239 Alcohol dependence with withdrawal, unspecified (principal); F17.200 Nicotine dependence, unspecified, uncomplicated; Z79.899 Other long term (current) drug therapy
CPT/HCPCS: 93005; 93010; 99285

== ENCOUNTER 2017-06-30 14:09 | Emergency (ER) | payer OTHER ==
--- NOTE | 2017-06-30 14:37 | ER Document Report ---
ED Medical Screen (RME) - General Chief Complaint: ETOH Abuse Stated Complaint: DEPRESSION Time Seen by Provider: 06/30/17 14:36 Mode of Arrival: Ambulatory Information source: Patient TRAVEL OUTSIDE OF THE [place] 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 He also states he is depressed and has thought about hurting himself - Related Data Allergies/Adverse Reactions: No Known Allergies Allergy (Verified 06/30/17 14:20) Past Medical History - Social History Chew tobacco use (# tins/day): No Frequency of alcohol use: Heavy Drug Abuse: None Neurological Medical History: Reports: Hx Seizures Renal/ Medical History: Denies: Hx Peritoneal Dialysis GI Medical History: Reports: Hx Gastroesophageal Reflux Disease Musculoskeltal Medical History: Reports Hx Musculoskeletal Deformity Psychiatric Medical History: Reports: Hx Post Traumatic Stress Disorder Traumatic Medical History: Reports: Hx Traumatic Brain Injury Surgical Hx: Negative - Immunizations Hx Diphtheria, Pertussis, Tetanus Vaccination: Yes Physical Exam - Vital signs Vitals: Temp Pulse Resp BP Pulse Ox 99.1 F 132 H 18 150/104 H 97 06/30/17 14:11 06/30/17 14:11 06/30/17 14:11 06/30/17 14:11 06/30/17 14:11 Course - Vital Signs Vital signs: Temp Pulse Resp BP Pulse Ox 99.1 F 132 H 18 150/104 H 97 06/30/17 14:11 06/30/17 14:11 06/30/17 14:11 06/30/17 14:11 06/30/17 14:11
[2017-06-30 14:55] LABS: ABSOLUTE EOSINOPHILS # (AUTO) 0.1 10^3/uL (0.0-0.6); ABSOLUTE LYMPHOCYTES (AUTO) 1.3 10^3/uL (0.5-4.7); ABSOLUTE MONOCYTES (AUTO) 0.3 10^3/uL (0.1-1.4); ABSOLUTE NEUT (AUTO) 2.2 10^3/uL (1.7-8.2); BASOPHILS % (AUTO) 0.7 % (0-2); EOSINOPHILS % (AUTO) 1.7 % (0-6); HEMATOCRIT 40.9 % (37.9-51.0); HEMOGLOBIN 14.6 g/dL (13.5-17.0); HGB HCT DIFFERENCE 2.9; LYMPHOCYTES % (AUTO) 33.9 % (13-45); MEAN CORPUSCULAR HEMOGLOBIN 34.1 pg (27.0-33.4); MEAN CORPUSCULAR HGB CONC 35.6 g/dL (32.0-36.0); MEAN CORPUSCULAR VOLUME 96 fl (80-97); RED BLOOD COUNT 4.27 10^6/uL (4.35-5.55); RED CELL DISTRIBUTION WIDTH 15.5 % (11.5-14.0); SEGMENTED NEUTROPHILS % (AUTO) 55.7 % (42-78); WHITE BLOOD COUNT 3.9 10^3/uL (4.0-10.5)
[2017-06-30 15:08] LABS: ALANINE AMINOTRANSFERASE 142 U/L (21-72); ALCOHOL 149 mg/dL (NONE DETECTED); ALKALINE PHOSPHATASE 85 U/L (38-126); ANION GAP 15 (5-19); ASPARTATE AMINO TRANSFERASE 88 U/L (17-59); BILIRUBIN,DIRECT 0.5 mg/dL (0.0-0.4); BILIRUBIN,TOTAL 0.5 mg/dL (0.2-1.3); BLOOD UREA NITROGEN 6 mg/dL (7-20); CALCIUM 9.4 mg/dL (8.4-10.2); CARBON DIOXIDE 21 mmol/L (22-30); CHLORIDE 108 mmol/L (98-107); CREATININE RESULT 1.02 mg/dL (0.52-1.25); GLUCOSE 92 mg/dL (75-110); POTASSIUM 4.1 mmol/L (3.6-5.0); TOTAL PROTEIN 7.9 g/dL (6.3-8.2)
[2017-06-30 15:16] LABS: URINE BARBITURATES SCREEN NEGATIVE; URINE METHADONE SCREEN NEGATIVE; URINE OPIATES LOW NEGATIVE; URINE PHENCYCLIDINE SCREEN NEGATIVE
[2017-06-30 15:18] LABS: APPEARANCE,URINE CLEAR; BILIRUBIN,URINE NEGATIVE (NEGATIVE); GLUCOSE, URINE NEGATIVE (NEGATIVE); KETONES,URINE NEGATIVE (NEGATIVE); LEUKOCYTE ESTERASE,URINE NEGATIVE (NEGATIVE); NITRITE,URINE NEGATIVE (NEGATIVE); PROTEIN,URINE NEGATIVE (NEGATIVE); URINE SPECIFIC GRAVITY 1.002; UROBILINOGEN,URINE NEGATIVE mg/dL (<2.0)
[2017-06-30] MEDS ORDERED: ONDANSETRON HCL INJ/PF 4 MG/2 ML SDV IV ONE (15:18)
[2017-06-30] MEDS ORDERED: LORAZEPAM INJ 2 MG/1 ML VIAL IV ONE (15:18)
[2017-06-30] MEDS ORDERED: NORMAL SALINE 1000 ML 1,000 ML IV ONE (15:18)
[2017-06-30] MEDS ORDERED: CLONIDINE HCL 0.1 MG TABLET PO ONE (15:18)
--- NOTE | 2017-06-30 15:49 | ER Document Report ---
ED Substance Abuse / Acc. OD - General Chief Complaint: ETOH Abuse Stated Complaint: PSYCH EVAL Time Seen by Provider: 06/30/17 15:17 Mode of Arrival: Ambulatory Information source: Patient TRAVEL OUTSIDE OF THE [place] IN LAST 30 DAYS: No - HPI Patient complains to provider of: Alcohol abuse, Other - PTSD Onset: This morning Onset/Duration: Gradual Quality of pain: No pain Situational problems related to: Other - HOMELESS, HE SAYS Overdose of: Alcohol Associated Symptoms: Nausea/vomiting, Tremors, Headache Similar symptoms previously: Yes Recently seen / treated by doctor: No - Related Data Allergies/Adverse Reactions: No Known Allergies Allergy (Verified 06/30/17 14:20) Home Medications: Current Home Medications Carisoprodol [Carisoprodol] 350 mg PO BID 06/30/17 [History] Clonazepam [Clonazepam] 1 mg PO TID 06/30/17 [History] Mirtazapine [Mirtazapine] 15 mg PO QHS 06/30/17 [History] Pregabalin [Lyrica] 100 mg PO TID 06/30/17 [History] Quetiapine Fumarate [Quetiapine Fumarate] 300 mg PO QHS 06/30/17 [History] Past Medical History - General Information source: Patient - Social History Smoking Status: Current Every Day Smoker Chew tobacco use (# tins/day): No Frequency of alcohol use: Heavy Drug Abuse: None Family History: CVA, Malignancy Patient has suicidal ideation: - Patient became tearful and refused to answer question Patient has homicidal ideation: No Neurological Medical History: Reports: Hx Seizures Renal/ Medical History: Denies: Hx Peritoneal Dialysis GI Medical History: Reports: Hx Gastroesophageal Reflux Disease Musculoskeltal Medical History: Reports Hx Musculoskeletal Deformity Psychiatric Medical History: Reports: Hx Post Traumatic Stress Disorder Traumatic Medical History: Reports: Hx Traumatic Brain Injury Surgical Hx: Negative - Immunizations Hx Diphtheria, Pertussis, Tetanus Vaccination: Yes Review of Systems - Review of Systems Constitutional: See HPI EENT: No symptoms reported Cardiovascular: No symptoms reported Respiratory: No symptoms reported Gastrointestinal: See HPI Genitourinary: No symptoms reported Musculoskeletal: No symptoms reported Skin: No symptoms reported Neurological/Psychological: See HPI Physical Exam - Vital signs Vitals: Temp Pulse Resp BP Pulse Ox 99.1 F 132 H 18 150/104 H 97 06/30/17 14:11 06/30/17 14:11 06/30/17 14:11 06/30/17 14:11 06/30/17 14:11 Interpretation: Hypertensive, Tachycardic. No: Tachypneic, Febrile - General General appearance: Appears well, Alert In distress: None - HEENT Head: Normocephalic Eyes: Normal Conjunctiva: Normal Ears: Normal Nasal: Normal Mouth/Lips: Normal Mucous membranes: Dry - MILDLY Pharynx: Normal Neck: Normal - Respiratory Respiratory status: No respiratory distress Breath sounds: Normal - Cardiovascular Rhythm: Regular, Tachycardia Heart sounds: Normal auscultation Murmur: No - Abdominal Inspection: Normal Distension: No distension Bowel sounds: Hypoactive - Back Back: Normal - Extremities General upper extremity: Normal inspection General lower extremity: Normal inspection - Neurological Neuro grossly intact: Yes - MILDLY TREMULOUS Cognition: Normal Orientation: AAOx4 - Psychological Associated symptoms: Anxious, Restlessness - Skin Skin Temperature: Warm Skin Moisture: Dry Skin Color: Normal Skin Turgor: Elastic Course - Re-evaluation Re-evalutation: 06/30/17 20:14 Long discussion was had with patient regarding his medical and psychiatric status and the resources available for treatment of same. He understands that, due to his past noncompliance and multiple unsuccessful attempts at detox and rehab, very few resources are available to him at the present time. He insists that he has no alcohol-free place to go tonight, hints at increasing depression and suicidal ideation. Objectively, the patient does appear to have moderate symptoms of alcohol withdrawal, including hypertension, tachycardia, and tremor. Plan is to voluntarily keep him under observation with medication as needed for symptom control. He will be reevaluated and further efforts made to find a satisfactory disposition tomorrow. - Vital Signs Vital signs: Temp Pulse Resp BP Pulse Ox 99.1 F 96 16 126/74 H 98 06/30/17 14:14 06/30/17 18:40 06/30/17 18:40 06/30/17 18:40 06/30/17 18:40 - Laboratory Result Diagrams: 06/30/17 14:35 06/30/17 14:35 Laboratory results interpreted by me: 06/30/17 06/30/17 14:35 14:35 WBC 3.9 L RBC 4.27 L MCH 34.1 H RDW 15.5 H Chloride 108 H Carbon Dioxide 21 L BUN 6 L Direct Bilirubin 0.5 H AST 88 H ALT 142 H Discharge - Discharge Clinical Impression: Alcohol abuse, Post traumatic stress disorder (PTSD) Alcohol withdrawal Qualifiers: Complication of substance-induced condition: uncomplicated Qualified Code(s): F10.230 - Alcohol dependence with withdrawal, uncomplicated Condition: Stable Disposition: HOME, SELF-CARE Additional Instructions: Alcohol Withdrawal Your symptoms are caused by alcohol withdrawal. After a period of frequent drinking, the brain and body are changed by the alcohol. When you quit or reduce your drinking, the nervous system becomes unstable. Withdrawal symptoms can start a few hours after your last drink, but sometimes don't begin until a couple of days later. Symptoms can include shakiness, sweating, insomnia, nausea , vomiting, fearfulness, hallucinations, and seizures. In addition to the acute effects of alcohol withdrawal, we often have to deal with the medical effects of alcoholism. These problems often include dehydration, stomach irritation, intestinal bleeding, low blood sugar, liver disease, and pancreas inflammation. Treatment for alcohol withdrawal includes mild sedatives, vitamins, and fluids. You need to be with someone who can help if symptoms become severe. Many patients can withdraw at home. Admission to the hospital or a detox facility may be necessary if withdrawal symptoms are severe and uncontrollable. Abstaining from alcohol is the only effective long-term treatment. If you start drinking again, you will not be able to control yourself after the first drink. Treatment programs are available. In addition, many alcoholics benefit from Alcoholics Anonymous or other support groups available through your counselor or [employer]. [facility] and [facility] are support groups for friends and family members of an alcoholic. Go to the emergency room if you develop persistent vomiting, severe abdominal pain, fever, shortness of breath, hallucinations, uncontrollable tremors, or seizures. Post-Traumatic Stress Disorder You seem to have post-traumatic stress disorder (PTSD). PTSD can cause chronic anxiety, sleeping problems, social withdrawal, and drug abuse. It can occur following a traumatic personal experience such as an accident, rape, assault, or of a loved one, or after experiencing a war or natural disaster. Symptoms may be delayed for days or even years. Emotional numbing, the inability to express grief, is usually the earliest sign. There may be apathy or agitation, aggression, and inability to perform ordinary tasks. Often there are frightening nightmares and sudden, intruding memories of the trauma. Panic attacks and feelings of guilt are common. Alcohol and drug use make post- traumatic stress symptoms worse. Medication may be temporarily necessary to combat anxiety, panic attacks, and depression. Medicine should not be considered a "cure." You must deal with the trauma and prepare to go on. Group therapy is often helpful. This helps you "talk through" the problem with others who share your symptoms. We can provide you with an appropriate referral. Please pursue substance abuse treatment. [facility] is a local facility currently with open beds . You have also been provided a list of resources to assist you in following up with treatment. You have denied suicidal ideations, intent, plan, and or means. Please return if your symptoms worsen. FOLLOW UP NEEDED WITH [facility], OR WITH [facility] IN [place] OR [place]. Referrals: [facility] [Provider Group] - Follow up as needed
--- NOTE | 2017-06-30 17:48 | ER Document Report ---
Addendum entered and electronically signed by CAIN BATISTA LPC 07/01/17 08: 32: ED Psych Disorder / Suicide - General Chief Complaint: ETOH Abuse Stated Complaint: PSYCH EVAL Time Seen by Provider: 06/30/17 15:17 Mode of Arrival: Ambulatory TRAVEL OUTSIDE OF THE U.S. IN LAST 30 DAYS: No - HPI Notes: Conducted brief check in with patient who is a 31 year old, whom initially presented yesterday with c/o ETOH withdrawal and requesting stronger Librium. Patient was evaluated psychiatrically cleared for discharge to voluntarily pursue drug alcohol treatment. Patient was held overnight by medical, per the report, due to patient not having an alcohol free environment to return to, as well as withdrawal symptoms requiring pharmacological intervention. Briefly discussed with patient that he was denied for inpatient treatment by the [facility], reportedly due to back payments, number of prior admissions, and also a more recent administrative discharge. Patient this morning was prompted to contact mobile crisis to request they assist him in locating a detox bed and or inpatient SA program. Patient continues to be recommended for discharge to voluntarily pursue substance abuse treatment. Patient has reportedly stated [facility] [place] [facility]; however, it should be noted, this is an outpatient clinic and is unlikely to secure a same day treatment bed. - Related Data Allergies/Adverse Reactions: No Known Allergies Allergy (Verified 06/30/17 14:20) Home Medications: Current Home Medications Carisoprodol [Carisoprodol] 350 mg PO BID 06/30/17 [History] Clonazepam [Clonazepam] 1 mg PO TID 06/30/17 [History] Mirtazapine [Mirtazapine] 15 mg PO QHS 06/30/17 [History] Pregabalin [Lyrica] 100 mg PO TID 06/30/17 [History] Quetiapine Fumarate [Quetiapine Fumarate] 300 mg PO QHS 06/30/17 [History] Original Note: ED Psych Disorder / Suicide - General Chief Complaint: ETOH Abuse Stated Complaint: PSYCH EVAL Time Seen by Provider: 06/30/17 15:17 Mode of Arrival: Ambulatory Information source: Patient, Relative, H Records TRAVEL OUTSIDE OF THE U.S. IN LAST 30 DAYS: No - HPI Patient complains to provider of: Suicidal ideation, Other - ETOH withdrawal/SA Onset: Other Onset was: Cannot confirm Suicide Risk Factors: Depressed, Male, Substance abuse - ETOH, Cocaine, Marijuana, Benzo abuse, Other mental health dx. - PTSD Normal mood: No Associated symptoms: Depressed, Tearful Similar symptoms previously: Yes Recently seen / treated by doctor: No - Only in this Department Notes: Patient is a 31 year old male who presents with c/o alcohol withdrawal and combat related PTSD. Patient was noted as tearful at triage and guarded in regards to answering questions about suicidality. A review of patient's record yields 8 total visits since April 15, 2017, each related to alcohol/SA and or medication refills. Notable, patient was seen in the Department 2 days ago and was prescribed Librium. He presents today stating it is not strong enough to manage his withdrawal symptoms; however, his toxicology demonstrates a BAL of 149. 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, whom he met when they were inpatient at [facility] about 1.5 months ago. Patient states this other individual drinks from the time he wakes up until the times he goes to sleep. Patient maintains that he corea acquired these same habits and has to separate himself. Patient states his drinking has gotten beyond his control. Patient's history is limited, and it is unclear if this is due to his alcohol level, or if he is misleading. 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 Patient initially blamed his current living circumstances on his increase in alcohol use; however, did eventually disclose that he has been to the [facility] a total of 3 times and is unsure if he can return. Patient states he has attempted sucide in the past via overdose of his seroquel, and is unbable to remember what transpired after the overdose, eg was he admitted medically, did he transfer for inpatient psychiatric treatment, etc. Patient does deny wanting to by suicide at this time. Patient clarified that he feels as though he will if he does not stop drinking, but does not want to kill himself purposefully. Patient does report no support individuals, and specifies that his father is alive, but abuses alcohol as well. Patient denies access to weapons. Patient reports he needs "some real help and can't go home." Patient is A&O. Mood is depressed with labile affect. Patient denies suicidal/ homicidal ideations, intent, plan, or means. Patient denies A/V H; delusions not noted. Thought processes were guarded. Conversational speech was low for prosody. Intellectual abilities were estimated to be under the influence. Attention and focus were poor. Insight, judgment, and impulse control were poor. Posttraumatic Stress Disorder, per history Unspecified Neurocognitive Disorder, per history Unspecified Alcohol Use Disorder Patient is psychiatrically cleared for discharge. Patient denies suicidal ideations. Patient mostly credits his islam beliefs for not wanting to by suicide. Patient states he needs "real help" which he identifies as inpatient hospitalization, either at this facility or an inpatient SA facility. Per patient, he has been to the [facility] x3 and is unsure if he can return. Patient provided psychoeducation regarding the process for substance abuse treatment in [place], which is largely voluntary. Did contact [facility] who stated the patient's last admission resulted in an adminsistrative discharge, and would require special permission to return. Provided patient will contact information for [facility] and encouraged contact and or any SA treatment. I consulted with Dr. Garibay in regards to the care and management of this patient. ED MD is in agreement with disposition and recommendations. - Related Data Allergies/Adverse Reactions: No Known Allergies Allergy (Verified 06/30/17 14:20) Past Medical History - General Information source: Patient, [facility] Records, Outside Facility Records - [facility] - Social History Smoking Status: Current Every Day Smoker Chew tobacco use (# tins/day): No Frequency of alcohol use: Heavy Drug Abuse: Cocaine, Marijuana, Prescription drugs - Xanax Lives with: Friend - Residing At [facility] temporarily Family History: CVA, Malignancy Patient has suicidal ideation: No - Patient became tearful and refused to answer question Patient has homicidal ideation: No Neurological Medical History: Reports: Hx Seizures Renal/ Medical History: Denies: Hx Peritoneal Dialysis GI Medical History: Reports: Hx Gastroesophageal Reflux Disease Musculoskeltal Medical History: Reports Hx Musculoskeletal Deformity Psychiatric Medical History: Reports: Hx Post Traumatic Stress Disorder Traumatic Medical History: Reports: Hx Traumatic Brain Injury Surgical Hx: Negative - Immunizations Hx Diphtheria, Pertussis, Tetanus Vaccination: Yes Physical Exam - Vital signs Vitals: Temp Pulse Resp BP Pulse Ox 99.1 F 132 H 18 150/104 H 97 06/30/17 14:11 06/30/17 14:11 06/30/17 14:11 06/30/17 14:11 06/30/17 14:11 Course - Vital Signs Vital signs: Temp Pulse Resp BP Pulse Ox 99.1 F 132 H 18 150/104 H 97 06/30/17 14:11 06/30/17 14:11 06/30/17 14:11 06/30/17 14:11 06/30/17 14:11 - Laboratory Result Diagrams: 06/30/17 14:35 06/30/17 14:35 Laboratory results interpreted by me: 06/30/17 06/30/17 14:35 14:35 WBC 3.9 L RBC 4.27 L MCH 34.1 H RDW 15.5 H Chloride 108 H Carbon Dioxide 21 L BUN 6 L Direct Bilirubin 0.5 H AST 88 H ALT 142 H Discharge - Discharge Clinical Impression: Alcohol abuse, Post traumatic stress disorder (PTSD) Condition: Stable Disposition: HOME, SELF-CARE Additional Instructions: Alcohol Withdrawal Your symptoms are caused by alcohol withdrawal. After a period of frequent drinking, the brain and body are changed by the alcohol. When you quit or reduce your drinking, the nervous system becomes unstable. Withdrawal symptoms can start a few hours after your last drink, but sometimes don't begin until a couple of days later. Symptoms can include shakiness, sweating, insomnia, nausea , vomiting, fearfulness, hallucinations, and seizures. In addition to the acute effects of alcohol withdrawal, we often have to deal with the medical effects of alcoholism. These problems often include dehydration, stomach irritation, intestinal bleeding, low blood sugar, liver disease, and pancreas inflammation. Treatment for alcohol withdrawal includes mild sedatives, vitamins, and fluids. You need to be with someone who can help if symptoms become severe. Many patients can withdraw at home. Admission to the hospital or a detox facility may be necessary if withdrawal symptoms are severe and uncontrollable. Abstaining from alcohol is the only effective long-term treatment. If you start drinking again, you will not be able to control yourself after the first drink. Treatment programs are available. In addition, many alcoholics benefit from Alcoholics Anonymous or other support groups available through your counselor or judaism circulation man. [facility]ON and ALA-TEEN are support groups for friends and family members of an alcoholic. Go to the emergency room if you develop persistent vomiting, severe abdominal pain, fever, shortness of breath, hallucinations, uncontrollable tremors, or seizures. Post-Traumatic Stress Disorder You seem to have post-traumatic stress disorder (PTSD). PTSD can cause chronic anxiety, sleeping problems, social withdrawal, and drug abuse. It can occur following a traumatic personal experience such as an accident, rape, assault, or of a loved one, or after experiencing a war or natural disaster. Symptoms may be delayed for days or even years. Emotional numbing, the inability to express grief, is usually the earliest sign. There may be apathy or agitation, aggression, and inability to perform ordinary tasks. Often there are frightening nightmares and sudden, intruding memories of the trauma. Panic attacks and feelings of guilt are common. Alcohol and drug use make post- traumatic stress symptoms worse. Medication may be temporarily necessary to combat anxiety, panic attacks, and depression. Medicine should not be considered a "cure." You must deal with the trauma and prepare to go on. Group therapy is often helpful. This helps you "talk through" the problem with others who share your symptoms. We can provide you with an appropriate referral. Please pursue substance abuse treatment. [facility] is a local facility currently with open beds . You have also been provided a list of resources to assist you in following up with treatment. You have denied suicidal ideations, intent, plan, and or means. Please return if your symptoms worsen. Referrals: [facility] [Provider Group] - Follow up as needed
[2017-06-30] MEDS ORDERED: ONDANSETRON 4 MG TAB.RAPDIS PO ONE (18:26)
[2017-06-30] MEDS ORDERED: LORAZEPAM 1 MG TABLET PO ONE (18:27)
[2017-06-30] MEDS ORDERED: DIAZEPAM 5 MG TABLET PO ONE (19:50)
[2017-06-30] MEDS ORDERED: CLONIDINE 0.1 MG/24 HR PATCH.TDWK TD ONE (19:52)
[2017-06-30] MEDS ORDERED: NICOTINE 21 MG/24 HR PATCH.TD24 TD ONE (20:12)
[2017-06-30] MEDS ORDERED: QUETIAPINE FUMARATE 100 MG TABLET PO SCH (22:00)
[2017-06-30] MEDS ORDERED: MIRTAZAPINE 15 MG TABLET PO SCH (22:00)
[2017-06-30] MEDS: CARISOPRODOL 350 MG TABLET PO SCH (22:13)
[2017-07-01] MEDS ORDERED: LORAZEPAM INJ 2 MG/ML VIAL (4 MG PRN DOSE) IV
[2017-07-01] MEDS: LORAZEPAM 1 MG TABLET (TAPER DOSING) PO SCH ×2 (00:33→08:09)
[2017-07-01] MEDS ORDERED: LANSOPRAZOLE 15 MG TAB.RAP.DR PO SCH (06:00)
[2017-07-01] MEDS: CARISOPRODOL 350 MG TABLET PO SCH (08:15)
[2017-07-01] MEDS ORDERED: NICOTINE 21 MG/24 HR PATCH.TD24 TD ONE (09:18)
[2017-07-01] MEDS ORDERED: CLONAZEPAM 1 MG TABLET PO SCH (10:00)
[2017-07-01] MEDS ORDERED: PREGABALIN 100 MG CAPSULE PO SCH (10:00)
[2017-07-01 10:21] VITALS: BP 139/94
== END 2017-07-01 10:39 | disposition home or self-care (01) ==
LOC: ER 14:09
DX: F43.10 Post-traumatic stress disorder, unspecified (principal); F10.230 Alcohol dependence with withdrawal, uncomplicated; R11.2 Nausea with vomiting, unspecified; F32.9 Major depressive disorder, single episode, unspecified; F17.200 Nicotine dependence, unspecified, uncomplicated; Z87.820 Personal history of traumatic brain injury
CPT/HCPCS: 96376; 99284; 96374; 96375; 36415; 80307 ×2; 84443; 85025; 80053; 81001; J3490 ×3; S0119; J2060 ×2; J2405; J7030

== ENCOUNTER 2017-07-02 15:38 | Emergency (ER) | payer OTHER ==
[2017-07-02 16:05] VITALS: BP 140/96
--- NOTE | 2017-07-02 16:42 | ER Document Report ---
ED Medical Screen (RME) - General Chief Complaint: ETOH Abuse Stated Complaint: PSYCH EVAL Time Seen by Provider: 07/02/17 16:40 Mode of Arrival: Ambulatory Information source: Patient Notes: Patient presents reporting having suicidal thoughts in which he thought about jumping into traffic and that he occasionally will wrap a cord tightly around his neck until he feels like he is going to pass out. Patient states that he feels like he is attempting to test the love regarding hurting himself. Patient states that he has a lot of issues with PTSD and alcoholism. Patient states he has been drinking a case of beer daily for the past 3 weeks and last drink alcohol around 1030 today. TRAVEL OUTSIDE OF THE U.S. IN LAST 30 DAYS: No - Related Data Allergies/Adverse Reactions: No Known Allergies Allergy (Verified 07/02/17 16:11) Home Medications: Current Home Medications Carisoprodol [Soma 350 Mg Tablet] 350 mg PO TID 07/02/17 [History] Omeprazole 20 mg PO DAILY 07/02/17 [History] Prazosin HCl [Minipress] 2 mg PO DAILY 07/02/17 [History] Quetiapine Fumarate [Seroquel] 300 mg PO QHS 07/02/17 [History] Past Medical History Neurological Medical History: Reports: Hx Seizures Renal/ Medical History: Denies: Hx Peritoneal Dialysis GI Medical History: Reports: Hx Gastroesophageal Reflux Disease Musculoskeltal Medical History: Reports Hx Musculoskeletal Deformity Psychiatric Medical History: Reports: Hx Post Traumatic Stress Disorder Traumatic Medical History: Reports: Hx Traumatic Brain Injury - Immunizations Hx Diphtheria, Pertussis, Tetanus Vaccination: Yes Physical Exam - Vital signs Vitals: Temp Pulse Resp BP Pulse Ox 99.0 F 100 16 140/96 H 98 07/02/17 15:59 07/02/17 15:59 07/02/17 15:59 07/02/17 15:59 07/02/17 15:59 - Psychological Associated symptoms: Depressed, Flat affect Course - Vital Signs Vital signs: Temp Pulse Resp BP Pulse Ox 99.0 F 100 16 140/96 H 98 07/02/17 15:59 07/02/17 15:59 07/02/17 15:59 07/02/17 15:59 07/02/17 15:59
[2017-07-02 17:20] LABS: ABSOLUTE EOSINOPHILS # (AUTO) 0.1 10^3/uL (0.0-0.6); ABSOLUTE LYMPHOCYTES (AUTO) 1.4 10^3/uL (0.5-4.7); ABSOLUTE MONOCYTES (AUTO) 0.4 10^3/uL (0.1-1.4); ABSOLUTE NEUT (AUTO) 4.4 10^3/uL (1.7-8.2); BASOPHILS % (AUTO) 0.2 % (0-2); EOSINOPHILS % (AUTO) 1.6 % (0-6); HEMATOCRIT 43.3 % (37.9-51.0); HEMOGLOBIN 15.1 g/dL (13.5-17.0); LYMPHOCYTES % (AUTO) 22.6 % (13-45); MEAN CORPUSCULAR HEMOGLOBIN 34.1 pg (27.0-33.4); MEAN CORPUSCULAR HGB CONC 34.7 g/dL (32.0-36.0); MEAN CORPUSCULAR VOLUME 98 fl (80-97); MONOCYTES % (AUTO) 5.7 % (3-13); RED BLOOD COUNT 4.42 10^6/uL (4.35-5.55); RED CELL DISTRIBUTION WIDTH 15.6 % (11.5-14.0); SEGMENTED NEUTROPHILS % (AUTO) 69.9 % (42-78); WHITE BLOOD COUNT 6.4 10^3/uL (4.0-10.5)
[2017-07-02 17:34] LABS: ALANINE AMINOTRANSFERASE 163 U/L (21-72); ALBUMIN 5.3 g/dL (3.5-5.0); ALKALINE PHOSPHATASE 96 U/L (38-126); ANION GAP 12 (5-19); ASPARTATE AMINO TRANSFERASE 94 U/L (17-59); BILIRUBIN,DIRECT 0.4 mg/dL (0.0-0.4); BILIRUBIN,TOTAL 0.4 mg/dL (0.2-1.3); BLOOD UREA NITROGEN 9 mg/dL (7-20); CALCIUM 10.4 mg/dL (8.4-10.2); CARBON DIOXIDE 28 mmol/L (22-30); CHLORIDE 103 mmol/L (98-107); CREATININE RESULT 1.09 mg/dL (0.52-1.25); GLUCOSE 94 mg/dL (75-110); POTASSIUM 4.3 mmol/L (3.6-5.0); SODIUM 143.1 mmol/L (137-145); TOTAL PROTEIN 8.2 g/dL (6.3-8.2)
--- NOTE | 2017-07-02 17:43 | PSYCHOLOGICAL NOTE ---
Psych Note - Psych Note Psych Note: Review of Patient's chart reveals Patient continues to present to [facility] ED para- suicidal and under the influence. Each time Patient presents, his "plan" for suicide is not changes and he either does not have the means to follow through per his stated plan or the plan is not possible (i.e. strangulation via a cord) . Review of Patient's medication regiment reveals he continues to receive either Librium or ativan at each visit whether he is being discharged or being held for observation. Patient's history is significant for drug seeking behavior and it is felt his most recent pattern of return to the ED is in the vein, seeking addicting benzodiazepines. Patient is not compliant with outpatient follow up as he will go to the appointment but make the same comments in an effort to be re-IVC to ED. Patient is not interested in receiving detox or following through with gaining sobriety, rather he is interested in seeking addictive medications to maintain emotional numbness when the alcohol wears off. Recommendation: If medically appropriate, physicians are encouraged to refrain from providing the patient with addicting medications upon discharge, and any prescribed medications non-addicting prescribed as an alterative to treat his reported anxiety. Patient is known to be adept at demonstrating "tremors" or giving evidence of withdrawal to convince practitioners he requires high doses of Ativan. Please consider recommending / requiring detox prior to addicting medications being prescribed (if medically warranted) given Patient's drug seeking, and lack of compliance with after care follow up and referrals.
[2017-07-02 17:45] LABS: ALCOHOL < 10 mg/dL (NONE DETECTED)
[2017-07-02 18:55] LABS: APPEARANCE,URINE CLEAR; BILIRUBIN,URINE NEGATIVE (NEGATIVE); GLUCOSE, URINE NEGATIVE (NEGATIVE); KETONES,URINE NEGATIVE (NEGATIVE); LEUKOCYTE ESTERASE,URINE NEGATIVE (NEGATIVE); NITRITE,URINE NEGATIVE (NEGATIVE); PROTEIN,URINE NEGATIVE (NEGATIVE); URINE SPECIFIC GRAVITY 1.003; UROBILINOGEN,URINE NEGATIVE mg/dL (<2.0)
[2017-07-02 19:09] LABS: URINE BARBITURATES SCREEN NEGATIVE; URINE METHADONE SCREEN NEGATIVE; URINE OPIATES LOW NEGATIVE; URINE PHENCYCLIDINE SCREEN NEGATIVE
--- NOTE | 2017-07-02 19:12 | EKG REPORT ---
SEVERITY:- NORMAL ECG - SINUS RHYTHM : Confirmed by: Emerson Workman MD 02-Jul-2017 19:11:50
--- NOTE | 2017-07-02 19:23 | ER Document Report ---
ED Psych Disorder / Suicide - General Chief Complaint: ETOH Abuse Stated Complaint: PSYCH EVAL Time Seen by Provider: 07/02/17 16:40 Mode of Arrival: Ambulatory Notes: Patient is a 31-year-old male, past medical history PTSD, alcoholism, presents with feelings of alcohol withdrawal. Last drink was at 1030 this morning. He is also having intermittent thoughts of hurting herself, which are chronic over the past few months. He has been evaluated by mental health multiple times for these. He tried to get help at [facility], but was not allowed to return. [facility] today for [facility] and they said that he could go to detox after he was cleared medically in the ER. Patient is taking Librium for his alcohol withdrawal symptoms denies hallucinations, tremors, chest pain, shortness of breath or palpitations. TRAVEL OUTSIDE OF THE U.S. IN LAST 30 DAYS: No - Related Data Allergies/Adverse Reactions: No Known Allergies Allergy (Verified 07/02/17 16:11) Home Medications: Current Home Medications Carisoprodol [Soma 350 Mg Tablet] 350 mg PO TID 07/02/17 [History] Omeprazole 20 mg PO DAILY 07/02/17 [History] Prazosin HCl [Minipress] 2 mg PO DAILY 07/02/17 [History] Quetiapine Fumarate [Seroquel] 300 mg PO QHS 07/02/17 [History] Past Medical History - General Information source: Patient - Social History Smoking Status: Current Every Day Smoker Frequency of alcohol use: Heavy Family History: CVA, Malignancy Patient has suicidal ideation: Yes Patient has homicidal ideation: No Neurological Medical History: Reports: Hx Seizures Renal/ Medical History: Denies: Hx Peritoneal Dialysis GI Medical History: Reports: Hx Gastroesophageal Reflux Disease Musculoskeltal Medical History: Reports Hx Musculoskeletal Deformity Psychiatric Medical History: Reports: Hx Post Traumatic Stress Disorder Traumatic Medical History: Reports: Hx Traumatic Brain Injury - Immunizations Hx Diphtheria, Pertussis, Tetanus Vaccination: Yes Review of Systems - Review of Systems Notes: REVIEW OF SYSTEMS: CONSTITUTIONAL: -fevers, -chills EENT: -eye pain, -difficulty swallowing, -nasal congestion CARDIOVASCULAR:-chest pain, -syncope. RESPIRATORY: -cough, -SOB GASTROINTESTINAL: -abdominal pain, - nausea, -vomiting, -diarrhea GENITOURINARY: -dysuria, -hematuria MUSCULOSKELETAL: -back pain, -neck pain SKIN: -rash or skin lesions. HEMATOLOGIC: -easy bruising or bleeding. LYMPHATIC: -swollen, enlarged glands. NEUROLOGICAL: -altered mental status or loss of consciousness, -headache, - neurologic symptoms PSYCHIATRIC: -anxiety, +depression. ALL OTHER SYSTEMS REVIEWED AND NEGATIVE. Physical Exam - Vital signs Vitals: Temp Pulse Resp BP Pulse Ox 99.0 F 100 16 140/96 H 98 07/02/17 15:59 07/02/17 15:59 07/02/17 15:59 07/02/17 15:59 07/02/17 15:59 - Notes Notes: PHYSICAL EXAMINATION: GENERAL: Well-appearing, well-nourished and in no acute distress. HEAD: Atraumatic, normocephalic. EYES: Pupils equal round and reactive to light, extraocular movements intact, sclera anicteric, conjunctiva are normal. ENT: nares patent, oropharynx clear without exudates. Moist mucous membranes. NECK: Normal range of motion, supple without lymphadenopathy LUNGS: Breath sounds clear to auscultation bilaterally and equal. No wheezes rales or rhonchi. HEART: Regular rate and rhythm without murmurs ABDOMEN: Soft, nontender, normoactive bowel sounds. No guarding, no rebound. No masses appreciated. EXTREMITIES: Normal range of motion, no pitting or edema. No cyanosis. NEUROLOGICAL: Cranial nerves grossly intact. Normal speech, normal gait. Normal sensory and motor exams. No tremors. PSYCH: Normal mood, normal affect. No hallucinations. SKIN: Warm, Dry, normal turgor, no rashes or lesions noted. Course - Re-evaluation Re-evalutation: Pt evaluated by Dr. Remington Garibay, psychologist, who suspects that patient is expressing parasuicidal thoughts for secondary gain. She believes that there is evidence of drug-seeking behavior for benzodiazepines. Patient says that [facility]. His CIWA score is 2 currently and he is safe for discharge. He has Librium at home and instructed him to continue this. - Vital Signs Vital signs: Temp Pulse Resp BP Pulse Ox 99.0 F 100 16 140/96 H 98 07/02/17 15:59 07/02/17 15:59 07/02/17 15:59 07/02/17 15:59 07/02/17 15:59 - Laboratory Result Diagrams: 07/02/17 17:00 07/02/17 17:00 Laboratory results interpreted by me: 07/02/17 07/02/17 17:00 17:00 MCV 98 H MCH 34.1 H RDW 15.6 H Calcium 10.4 H AST 94 H ALT 163 H Albumin 5.3 H Salicylates < 1.0 L Acetaminophen < 10 L Discharge - Discharge Clinical Impression: Drug-seeking behavior, Posttraumatic stress disorder Condition: Stable Disposition: HOME, SELF-CARE Additional Instructions: You are medically cleared for detox by the [facility]. DEPRESSION: Your evaluation reveals that you have mental depression. While symptoms may be vague, they often include disturbance of sleep, fatigue, loss of appetite , and general loss of interest in life. While depression may be a side effect of drugs, or a reaction to a major change in your life, many cases have no known cause. If depression is acute, and related to a major loss in your life, you can expect it to clear completely with time. If you have been depressed a long time , are prone to repeated bouts of depression or low mood, or have been thinking of suicide, get help. Depression can be treated with anti-depressant medication and counselling. Long-term depression will often take a few weeks to clear, even with appropriate medication. Follow-up care is important. SUICIDAL IDEATION: Suicidal ideation is a common medical term for thoughts about suicide, which may be as detailed as a formulated plan, without the suicidal act itself. Although most people who undergo suicidal ideation do not commit suicide, some go on to make suicide attempts. The range of suicidal ideation varies greatly from fleeting to detailed planning, role playing, and unsuccessful attempts. While thoughts about suicide are common, most people do not carry out serious actions to commit suicide. Based upon your evaluation and discussion with you, we do not believe you are currently at risk to act upon your thoughts of suicide. You have agreed to return to the Emergency Department, at any time , if you feel inclined to act upon your suicidal thoughts. FOLLOW-UP CARE: If you have been referred to a physician for follow-up care, call the physician s office for an appointment as you were instructed or within the next two days. If you experience worsening or a significant change in your symptoms, notify the physician immediately or return to the Emergency Department at any time for re-evaluation. Referrals: [facility] [Outside] - Follow up as needed
== END 2017-07-02 20:10 | disposition home or self-care (01) ==
LOC: ER 15:38
DX: Z76.5 Malingerer [conscious simulation] (principal); F43.10 Post-traumatic stress disorder, unspecified; F10.120 Alcohol abuse with intoxication, uncomplicated; Z79.899 Other long term (current) drug therapy; F17.200 Nicotine dependence, unspecified, uncomplicated
CPT/HCPCS: 36415; 80053; 80307; 81001; 85025; 93005; 93010; 99285

== ENCOUNTER 2017-07-02 21:13 | Emergency (ER) | payer OTHER ==
--- NOTE | 2017-07-03 01:51 | ER Document Report ---
ED General - General Chief Complaint: Psych Problem Stated Complaint: PSYCH EVAL Time Seen by Provider: 07/03/17 00:24 TRAVEL OUTSIDE OF THE U.S. IN LAST 30 DAYS: No - Related Data Allergies/Adverse Reactions: No Known Allergies Allergy (Verified 07/02/17 16:11) Past Medical History - Social History Smoking Status: Current Every Day Smoker Frequency of alcohol use: Heavy Family History: CVA, Malignancy Patient has suicidal ideation: Yes Patient has homicidal ideation: No Neurological Medical History: Reports: Hx Seizures Renal/ Medical History: Denies: Hx Peritoneal Dialysis GI Medical History: Reports: Hx Gastroesophageal Reflux Disease Musculoskeltal Medical History: Reports Hx Musculoskeletal Deformity Psychiatric Medical History: Reports: Hx Post Traumatic Stress Disorder Traumatic Medical History: Reports: Hx Traumatic Brain Injury - Immunizations Hx Diphtheria, Pertussis, Tetanus Vaccination: Yes Physical Exam - Vital signs Vitals: Temp Pulse Resp BP Pulse Ox 97.6 F 86 21 H 133/96 H 99 07/02/17 22:48 07/02/17 22:48 07/02/17 22:48 07/02/17 22:48 07/02/17 22:48 Course - Re-evaluation Re-evalutation: 07/03/17 01:49 Patient was recently seen and discharged by our psychiatric staff. Patient is returning. Very concerned patient behaviors consistent with drug-seeking. Quick evaluation the patient resting comfortably lying on his right side no signs of alcohol withdrawals or any serious etiology. We will continue to monitor the patient - Vital Signs Vital signs: Temp Pulse Resp BP Pulse Ox 98.1 F 74 18 103/72 97 07/03/17 06:12 07/03/17 06:12 07/03/17 06:12 07/03/17 06:12 07/03/17 06:12 Discharge - Discharge Clinical Impression: Alcohol dependence Qualifiers: Substance use status: unspecified alcohol-induced disorder Qualified Code(s): F10.29 - Alcohol dependence with unspecified alcohol-induced disorder Condition: Good Disposition: HOME, SELF-CARE Instructions: Alcohol Withdrawl ([facility]), Chronic Alcoholism ([facility]) Additional Instructions: Follow-up with your primary care physician. I will highly recommend going across the parking lot to [facility] for further evaluation and help. Return to the ER if symptoms worsen. Referrals: [facility] Mobile Crisis Team [Provider Group] - Follow up as needed [facility] [Provider Group] - Follow up as needed [facility] [Provider Group] - Follow up as needed
--- NOTE | 2017-07-03 07:06 | ER Document Report ---
ED General - General Chief Complaint: Psych Problem Stated Complaint: PSYCH EVAL Time Seen by Provider: 07/03/17 00:24 TRAVEL OUTSIDE OF THE U.S. IN LAST 30 DAYS: No - HPI Patient complains to provider of: Psychiatric evaluation Notes: Patient coming in for psychiatric evaluation. Patient was recently seen in the ER less than 12 hours evaluated by psychiatric team concern for drug-seeking behavior patient does have a history of drug abuse and chronic alcoholism. According to the psychiatric note patient has been manipulating situations in order to get drugs. Patient initially came to the ER on the we did repeat a blood alcohol level is still negative. Did go evaluate the patient however sleeping at bedside. Because of his recent evaluation decision was to wait to fully evaluate the patient early in the morning. Nursing staff reports upon his initial entrance into the ER was making passive suicidal comments. I evaluated the patient fully at this time patient was sleeping easily arousable. Denies any homicidal suicidal ideation at this time. Patient is requesting help states that he is gone to the [place] and got to other resources however he is not getting the help that he thinks he needs. Patient states that he understands we did not perform detox here at this facility however is inquiring about other facilities. Patient denies any fever chills nausea vomiting diarrhea. - Related Data Allergies/Adverse Reactions: No Known Allergies Allergy (Verified 07/02/17 16:11) Past Medical History - Social History Smoking Status: Current Every Day Smoker Frequency of alcohol use: Heavy Family History: CVA, Malignancy Patient has suicidal ideation: Yes Patient has homicidal ideation: No Neurological Medical History: Reports: Hx Seizures Renal/ Medical History: Denies: Hx Peritoneal Dialysis GI Medical History: Reports: Hx Gastroesophageal Reflux Disease Musculoskeltal Medical History: Reports Hx Musculoskeletal Deformity Psychiatric Medical History: Reports: Hx Post Traumatic Stress Disorder Traumatic Medical History: Reports: Hx Traumatic Brain Injury - Immunizations Hx Diphtheria, Pertussis, Tetanus Vaccination: Yes Review of Systems - Review of Systems Constitutional: No symptoms reported EENT: No symptoms reported Cardiovascular: No symptoms reported Respiratory: No symptoms reported Gastrointestinal: No symptoms reported Genitourinary: No symptoms reported Male Genitourinary: No symptoms reported Musculoskeletal: No symptoms reported Skin: No symptoms reported Hematologic/Lymphatic: No symptoms reported Neurological/Psychological: Other - Chronic alcoholism drug abuse Physical Exam - Vital signs Vitals: Temp Pulse Resp BP Pulse Ox 97.6 F 86 21 H 133/96 H 99 07/02/17 22:48 07/02/17 22:48 07/02/17 22:48 07/02/17 22:48 07/02/17 22:48 Interpretation: Normal - General General appearance: Appears well, Alert - HEENT Head: Normocephalic, Atraumatic Eyes: Normal Pupils: PERRL - Respiratory Respiratory status: No respiratory distress Chest status: Nontender Breath sounds: Normal Chest palpation: Normal - Cardiovascular Rhythm: Regular Heart sounds: Normal auscultation Murmur: No - Abdominal Inspection: Normal Distension: No distension Bowel sounds: Normal Tenderness: Nontender Organomegaly: No organomegaly - Back Back: Normal, Nontender - Extremities General upper extremity: Normal inspection, Nontender, Normal color, Normal ROM , Normal temperature General lower extremity: Normal inspection, Nontender, Normal color, Normal ROM , Normal temperature, Normal weight bearing. No: Charles's sign - Neurological Neuro grossly intact: Yes Cognition: Normal Orientation: AAOx4 Barry Coma Scale Eye Opening: Spontaneous Howard Coma Scale Verbal: Oriented Barry Coma Scale Motor: Obeys Commands Howard Coma Scale Total: 15 Speech: Normal Motor strength normal: LUE, RUE, LLE, RLE Sensory: Normal - Psychological Associated symptoms: Normal affect, Normal mood - Skin Skin Temperature: Warm Skin Moisture: Dry Skin Color: Normal Course - Re-evaluation Re-evalutation: 07/03/17 07:06 Will print the patient's paperwork off from his previous visits I will direct the patient to [facility] at this time patient denies any homicidal suicidal ideation patient is sleeping patient has no signs or symptoms of alcohol withdrawals or DTs. - Vital Signs Vital signs: Temp Pulse Resp BP Pulse Ox 98.1 F 74 18 103/72 97 07/03/17 06:12 07/03/17 06:12 07/03/17 06:12 07/03/17 06:12 07/03/17 06:12 Discharge - Discharge Clinical Impression: Alcohol dependence Qualifiers: Substance use status: unspecified alcohol-induced disorder Qualified Code(s): F10.29 - Alcohol dependence with unspecified alcohol-induced disorder Condition: Good Disposition: HOME, SELF-CARE Instructions: Alcohol Withdrawl ([facility]), Chronic Alcoholism ([facility]) Additional Instructions: Follow-up with your primary care physician. I will highly recommend going across the parking lot to [facility] for further evaluation and help. Return to the ER if symptoms worsen. Referrals: [facility] [Provider Group] - Follow up as needed [facility] [Provider Group] - Follow up as needed [facility] [Provider Group] - Follow up as needed
[2017-07-03 07:07] VITALS: BP 112/78
== END 2017-07-03 07:38 | disposition home or self-care (01) ==
LOC: ER 21:13
DX: F10.29 Alcohol dependence with unspecified alcohol-induced disorder (principal); Z76.5 Malingerer [conscious simulation]; F17.200 Nicotine dependence, unspecified, uncomplicated
CPT/HCPCS: 36415; 80307; 99285

== ENCOUNTER 2017-07-29 18:21 | Emergency (ER) | payer OTHER ==
--- NOTE | 2017-07-29 18:55 | ER Document Report ---
ED Medical Screen (RME) - General Chief Complaint: Alcohol Withdrawl Stated Complaint: NAUSEA,VOMITING,SHAKY Time Seen by Provider: 07/29/17 18:48 Notes: This 31-year-old male patient comes emergency room requesting help to stop drinking. He states he had a seizure about 2 days ago. He said he has been drinking more than usual the past 2 months. He reports drinking up to a case of beer on a daily basis. Last alcohol drink was 4 hours ago. He did go through a detox program at the [facility] about 6 months ago. He was seen here in the emergency room for the same problems 5 weeks ago. I have greeted and performed a rapid initial assessment of this patient. A comprehensive ED assessment and evaluation of the patient, analysis of test results and completion of the medical decision making process will be conducted by additional ED providers. TRAVEL OUTSIDE OF THE U.S. IN LAST 30 DAYS: No - Related Data Allergies/Adverse Reactions: No Known Allergies Allergy (Verified 07/29/17 18:24) Past Medical History - Social History Chew tobacco use (# tins/day): No Frequency of alcohol use: Heavy Drug Abuse: Marijuana Neurological Medical History: Reports: Hx Seizures Renal/ Medical History: Denies: Hx Peritoneal Dialysis GI Medical History: Reports: Hx Gastroesophageal Reflux Disease Musculoskeltal Medical History: Reports Hx Musculoskeletal Deformity Psychiatric Medical History: Reports: Hx Post Traumatic Stress Disorder Traumatic Medical History: Reports: Hx Traumatic Brain Injury Surgical Hx: Negative - Immunizations Hx Diphtheria, Pertussis, Tetanus Vaccination: Yes
[2017-07-29 19:23] LABS: ABSOLUTE EOSINOPHILS # (AUTO) 0.1 10^3/uL (0.0-0.6); ABSOLUTE LYMPHOCYTES (AUTO) 2.9 10^3/uL (0.5-4.7); ABSOLUTE MONOCYTES (AUTO) 0.5 10^3/uL (0.1-1.4); ABSOLUTE NEUT (AUTO) 4.8 10^3/uL (1.7-8.2); BASOPHILS % (AUTO) 0.6 % (0-2); EOSINOPHILS % (AUTO) 1.2 % (0-6); MEAN CORPUSCULAR HEMOGLOBIN 34.7 pg (27.0-33.4); MEAN CORPUSCULAR HGB CONC 34.8 g/dL (32.0-36.0); MEAN CORPUSCULAR VOLUME 100 fl (80-97); MONOCYTES % (AUTO) 5.7 % (3-13); RED BLOOD COUNT 4.61 10^6/uL (4.35-5.55); RED CELL DISTRIBUTION WIDTH 15.9 % (11.5-14.0); SEGMENTED NEUTROPHILS % (AUTO) 57.5 % (42-78); WHITE BLOOD COUNT 8.4 10^3/uL (4.0-10.5)
[2017-07-29 19:28] LABS: APPEARANCE,URINE CLEAR; BILIRUBIN,URINE NEGATIVE (NEGATIVE); GLUCOSE, URINE NEGATIVE (NEGATIVE); KETONES,URINE NEGATIVE (NEGATIVE); LEUKOCYTE ESTERASE,URINE NEGATIVE (NEGATIVE); NITRITE,URINE NEGATIVE (NEGATIVE); PROTEIN,URINE 100 mg/dL (NEGATIVE); URINE SPECIFIC GRAVITY 1.015; UROBILINOGEN,URINE NEGATIVE mg/dL (<2.0)
[2017-07-29] MEDS ORDERED: ONDANSETRON 4 MG TAB.RAPDIS PO ONE (19:38)
--- NOTE | 2017-07-29 19:38 | ER Document Report ---
ED General - General Chief Complaint: Alcohol Withdrawl Stated Complaint: NAUSEA,VOMITING,SHAKY Time Seen by Provider: 07/29/17 18:48 Notes: Patient is a 31-year-old male that comes the emergency department for chief complaint of wanting to stop drinking. He states that he and his roommate drink all day every day, he states that he drinks about a case of beer every day , he states he has been through detox within the past 6 months but "it didn't help much" and he is looking for a longer term situation for detox. He states he just started going to the [facility] but they have not referred him. He states he wants to go through them. He states he last drank 4 hours ago and he feels "jumpy" and "a little shaky". He denies nausea/vomiting. He states he thinks he had a seizure 2 days ago, states he was drinking at that time. He has had a total of 3 seizures reportedly. He is on Seroquel, an unnamed anti- anxiety medication, and a PPI. He denies SI or HI. TRAVEL OUTSIDE OF THE U.S. IN LAST 30 DAYS: No - Related Data Allergies/Adverse Reactions: No Known Allergies Allergy (Verified 07/29/17 18:24) Past Medical History - Social History Smoking Status: Current Every Day Smoker Chew tobacco use (# tins/day): No Frequency of alcohol use: Heavy Drug Abuse: Marijuana Family History: CVA, Malignancy Neurological Medical History: Reports: Hx Seizures Renal/ Medical History: Denies: Hx Peritoneal Dialysis GI Medical History: Reports: Hx Gastroesophageal Reflux Disease Musculoskeltal Medical History: Reports Hx Musculoskeletal Deformity Psychiatric Medical History: Reports: Hx Post Traumatic Stress Disorder Traumatic Medical History: Reports: Hx Traumatic Brain Injury Surgical Hx: Negative - Immunizations Hx Diphtheria, Pertussis, Tetanus Vaccination: Yes Review of Systems - Review of Systems Constitutional: See HPI EENT: No symptoms reported Cardiovascular: No symptoms reported Respiratory: No symptoms reported Gastrointestinal: No symptoms reported Genitourinary: See HPI Male Genitourinary: No symptoms reported Musculoskeletal: No symptoms reported Skin: No symptoms reported Hematologic/Lymphatic: No symptoms reported Neurological/Psychological: See HPI Physical Exam - Vital signs Vitals: Temp Pulse Resp BP Pulse Ox 98.3 F 87 18 145/104 H 98 07/29/17 19:54 07/29/17 19:54 07/29/17 19:54 07/29/17 19:54 07/29/17 19:54 Interpretation: Normal - General General appearance: Appears well, Alert In distress: None - HEENT Head: Normocephalic, Atraumatic Eyes: Normal Conjunctiva: Normal Extraocular movements intact: Yes Eyelashes: Normal Pupils: PERRL Nasal: Normal Mouth/Lips: Normal Mucous membranes: Normal Pharynx: Normal Neck: Normal - Respiratory Respiratory status: No respiratory distress Chest status: Nontender Breath sounds: Normal Chest palpation: Normal - Cardiovascular Rhythm: Regular. No: Tachycardia Heart sounds: Normal auscultation, S1 appreciated, S2 appreciated Murmur: No - Abdominal Inspection: Normal Distension: No distension Bowel sounds: Normal Tenderness: Nontender. No: Tender, Guarding Organomegaly: No organomegaly - Back Back: Normal, Nontender - Extremities General upper extremity: Normal inspection, Nontender, Normal color, Normal ROM , Normal temperature General lower extremity: Normal inspection, Nontender, Normal color, Normal ROM , Normal temperature, Normal weight bearing. 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 Patient is not tachycardic, he is well-appearing, he has minimal tremors in his hands when he is asked about tremors but when I observe him otherwise I do not notice any tremors. No evidence of delirium tremens or concerning alcohol withdrawal symptoms. I did review his workup performed in triage, CBC has macrocytic appearance consistent with alcohol abuse, chemistry unremarkable including unremarkable sodium, urinalysis without any concerning abnormalities. EKG sinus rhythm with no concerning abnormalities. Patient's physical examination is unremarkable. I had a long conversation with patient. Patient is not suicidal or homicidal, he states that he is tired of the temptation of living with his roommate, he drinks too much when he is with him, he states that he tried the detox program in [place] but it was not quite long enough and he wants more. He requests a prescription of benzodiazepines for home. Patient has had problems with abuse of benzodiazepines in the past, and I explained this reason I could not give him a prescription of it. After long discussion patient states he wants to go to detox through the [facility], he states this will probably help him the most. He can go for an appointment tomorrow. Patient states he does not want to drink but he is worried about withdrawals. Patient given a prescription of Librium for this, he has had this in the past, he actually had this within the past couple of months. Discussed return precautions in detail. Patient states understanding and agreement. - Vital Signs Vital signs: Temp Pulse Resp BP Pulse Ox 98.3 F 88 18 140/95 H 98 07/29/17 19:54 07/29/17 21:42 07/29/17 21:42 07/29/17 21:42 07/29/17 21:42 - Laboratory Result Diagrams: 07/29/17 19:06 07/29/17 19:06 Laboratory results interpreted by me: 07/29/17 07/29/17 07/29/17 19:06 19:06 19:06 MCV 100 H MCH 34.7 H RDW 15.9 H Calcium 10.4 H Albumin 5.2 H Urine Protein 100 H Acetaminophen < 10 L Discharge - Discharge Clinical Impression: Alcohol dependence with uncomplicated withdrawal Condition: Stable Disposition: HOME, SELF-CARE Additional Instructions: Your workup and examination show no concerning abnormalities. Take the Librium as prescribed, take the Zofran as prescribed if needed. Please follow-up tomorrow with the [facility] and discuss referral for detox programs. Return to emergency department for any concerning symptoms: worsening symptoms of withdrawal, seizures, vomiting, or feel unwell. Prescriptions: Chlordiazepoxide HCl [Librium 25 mg Capsule] 1 cap PO ASDIR PRN #25 capsule PRN Reason: Ondansetron [Zofran Odt 4 mg Tablet] 1 - 2 tab PO Q4H PRN #15 tab.rapdis PRN Reason: For Nausea/Vomiting Referrals: JAIME WORLEY PA-C [Primary Care Provider] - Follow up as needed
[2017-07-29 19:39] LABS: ALANINE AMINOTRANSFERASE 40 U/L (21-72); ALBUMIN 5.2 g/dL (3.5-5.0); ALCOHOL < 10 mg/dL (NONE DETECTED); ALKALINE PHOSPHATASE 81 U/L (38-126); ANION GAP 13 (5-19); ASPARTATE AMINO TRANSFERASE 37 U/L (17-59); BILIRUBIN,DIRECT 0.4 mg/dL (0.0-0.4); BLOOD UREA NITROGEN 9 mg/dL (7-20); CALCIUM 10.4 mg/dL (8.4-10.2); CARBON DIOXIDE 25 mmol/L (22-30); CHLORIDE 103 mmol/L (98-107); CREATININE RESULT 0.97 mg/dL (0.52-1.25); GLUCOSE 101 mg/dL (75-110); POTASSIUM 4.4 mmol/L (3.6-5.0); SODIUM 141.3 mmol/L (137-145); TOTAL PROTEIN 8.2 g/dL (6.3-8.2)
[2017-07-29 19:41] LABS: URINE BARBITURATES SCREEN NEGATIVE; URINE METHADONE SCREEN NEGATIVE; URINE OPIATES LOW NEGATIVE; URINE PHENCYCLIDINE SCREEN NEGATIVE
[2017-07-29] MEDS ORDERED: QUETIAPINE FUMARATE 100 MG TABLET PO ONE (20:48)
[2017-07-29] MEDS ORDERED: LORAZEPAM 1 MG TABLET PO ONE (21:28)
[2017-07-29 21:43] VITALS: BP 140/95
--- NOTE | 2017-07-30 07:01 | EKG REPORT ---
SEVERITY:- NORMAL ECG - SINUS RHYTHM : Confirmed by: Froilan Willingham 30-Jul-2017 06:59:42
== END 2017-07-29 21:42 | disposition home or self-care (01) ==
LOC: ER 18:21
DX: F10.239 Alcohol dependence with withdrawal, unspecified (principal); R11.2 Nausea with vomiting, unspecified; F17.200 Nicotine dependence, unspecified, uncomplicated; F43.10 Post-traumatic stress disorder, unspecified; Z87.820 Personal history of traumatic brain injury
CPT/HCPCS: 93005; 99285; 36415; 80307 ×3; 85025; 80053; 81001; 93010; S0119

== ENCOUNTER 2017-08-03 00:19 | Emergency (ER) | payer OTHER ==
[2017-08-03] MEDS ORDERED: ONDANSETRON 4 MG TAB.RAPDIS PO ONE (03:33)
[2017-08-03] MEDS ORDERED: DIAZEPAM 5 MG TABLET PO ONE (03:33)
--- NOTE | 2017-08-03 03:40 | ER Document Report ---
ED General - General Chief Complaint: ETOH Abuse Stated Complaint: ETOH Time Seen by Provider: 08/03/17 03:14 Notes: Patient is a 31-year-old male well-known to this emergency who presents for alcohol withdrawal, last alcohol use approximately 3-4 hours ago, and does admit to passive suicidal ideation. Patient admits that he has demonstrated drug-seeking behaviors in the past but explicitly states that he is not here asking for drugs but he does feel that he has "hit a new low, rock bottom". He states that as soon as he wakes up in the morning he has to drink due to his tremulousness. He states that alcohol is completely taken over his life and he is unsure what to do at this point. He does state "if I leave I do not think I will ever be back because I will be ". He denies any specific suicidal plan. He denies any other acute medical concerns. Nothing improves or worsens his symptoms. TRAVEL OUTSIDE OF THE U.S. IN LAST 30 DAYS: No - Related Data Allergies/Adverse Reactions: No Known Allergies Allergy (Verified 07/29/17 18:24) Home Medications: Current Home Medications Tramadol HCl [Ultram] 100 mg PO Q8 08/03/17 [History] Zolpidem Tartrate [Ambien] 10 mg PO QHS 08/03/17 [History] Past Medical History - General Information source: Patient - Social History Smoking Status: Current Every Day Smoker Frequency of alcohol use: Heavy Drug Abuse: None Lives with: Family Family History: CVA, Malignancy Patient has suicidal ideation: No Patient has homicidal ideation: No Neurological Medical History: Reports: Hx Seizures Renal/ Medical History: Denies: Hx Peritoneal Dialysis GI Medical History: Reports: Hx Gastroesophageal Reflux Disease Musculoskeltal Medical History: Reports Hx Musculoskeletal Deformity Psychiatric Medical History: Reports: Hx Post Traumatic Stress Disorder Traumatic Medical History: Reports: Hx Traumatic Brain Injury - Immunizations Hx Diphtheria, Pertussis, Tetanus Vaccination: Yes Review of Systems - Review of Systems Notes: Constitutional: Negative for fever. HENT: Negative for sore throat. Eyes: Negative for visual changes. Cardiovascular: Negative for chest pain. Respiratory: Negative for shortness of breath. Gastrointestinal: Negative for abdominal pain, vomiting or diarrhea. Genitourinary: Negative for dysuria. Musculoskeletal: Negative for back pain. Skin: Negative for rash. Neurological: Negative for headaches, weakness or numbness. 10 point ROS negative except as marked above and in HPI. Physical Exam - Vital signs Vitals: Temp Pulse Resp BP Pulse Ox 98.6 F 132 H 18 144/100 H 97 08/03/17 01:38 08/03/17 01:38 08/03/17 01:38 08/03/17 01:38 08/03/17 01:38 Interpretation: Tachycardic Notes: PHYSICAL EXAMINATION: GENERAL: Tremulous, mildly agitated HEAD: Atraumatic, normocephalic. EYES: Pupils equal round and reactive to light, extraocular movements intact, sclera anicteric, conjunctiva are normal. ENT: nares patent, oropharynx clear without exudates. Moist mucous membranes. NECK: Normal range of motion, supple without lymphadenopathy LUNGS: Breath sounds clear to auscultation bilaterally and equal. No wheezes rales or rhonchi. HEART: Regular tachycardia, without murmurs ABDOMEN: Soft, nontender, normoactive bowel sounds. No guarding, no rebound. No masses appreciated. EXTREMITIES: Normal range of motion, no pitting or edema. No cyanosis. NEUROLOGICAL: No focal neurological deficits. Moves all extremities spontaneously and on command. PSYCH: Slightly anxious, tremulous, moderately intoxicated SKIN: Warm, Dry, normal turgor, no rashes or lesions noted. Course - Re-evaluation Re-evalutation: 08/03/17 03:35 Patient presents mildly intoxicated, expressing a desire for inpatient rehab. Patient is somewhat anxious, mildly tremulous but in no acute distress. He denies any acute medical complaints. The patient has been seen in this emergency department repeatedly for similar presentations. However tonight patient states clearly that if he is discharged he suspects that he "would never be back because I think I will be ". When I inquire further patient states that he does have suicidal ideation although no specific plan. He admits that he has been in the emergency department repeatedly in the past and has been seeking drugs before. However, here he is asking mostly for nausea medications. He states he would not be safe if discharged. I do not think he meets IVC criteria at this point, but likewise I do not think he is safe for discharge at this moment, especially as he is especially asking to stay and speak with psychiatry for referral to inpatient rehab. He states that he has been calling the [place] and was told that he had a 72 hour to 1 week waiting period to be seen or considered for inpatient rehab and does not feel he can wait this long. He has no additional medical complaints. Will obtain screening labs for medical clearance, provide a low-dose of Valium as patient is demonstrating some signs of withdrawal including hypertension, tachycardia, tremulousness, mild agitation, and plan for psychiatric evaluation the morning - Vital Signs Vital signs: Temp Pulse Resp BP Pulse Ox 97.2 F 92 16 128/79 H 97 08/03/17 15:30 08/03/17 15:30 08/03/17 15:30 08/03/17 15:30 08/03/17 15:30 - Laboratory Result Diagrams: 08/03/17 04:00 08/03/17 04:00 Laboratory results interpreted by me: 08/03/17 08/03/17 08/03/17 02:13 04:00 04:00 RBC 4.19 L MCV 98 H MCH 35.5 H MCHC 36.3 H RDW 15.4 H Sodium 146.8 H Albumin 5.1 H Urine Protein 30 H Urine Blood SMALL H Salicylates < 1.0 L Acetaminophen < 10 L Discharge - Discharge Clinical Impression: Alcohol dependence with uncomplicated withdrawal, Alcohol use disorder, severe , dependence Condition: Fair Disposition: REHAB FACILITY Additional Instructions: CHRONIC ALCOHOLISM and ALCOHOL ABUSE: Your evaluation reveals evidence of chronic alcoholism, an addiction to alcohol. The tendency to alcoholism may be inherited. Chronic use of alcohol weakens muscles, causes fatty deposits in the liver , damages the stomach, makes you more prone to infections, and can cause defects in unborn children. In the long run, brain atrophy and cirrhosis of the liver result. You are also at greater risk for certain types of cancer, such as cancer of the mouth, throat, stomach, and liver. Counselling services are available to help you. In-hospital treatment programs often help. Support groups such as Alcoholics Anonymous can be very useful in beating this addiction. Your physician can make a referral for you. As alcoholics often are prone to other addictions, you should discuss your use of any other medications with the doctor. FOLLOW-UP CARE: You will go directly from [facility] ED to [facility] ([facility]) via their transportation for inpatient SA treatment, specifically detox at [facility]. You have been provided with information regarding [facility]. You should [facility] with [facility] once discharged from inpatient to discuss this program so as to have other Non [facility] options available. If you experience worsening or a significant change in your symptoms, notify the physician immediately or return to the Emergency Department at any time for re- evaluation. Referrals: [facility] [Provider Group] - Follow up as needed (upon discharge from inpatient SA treatment)
[2017-08-03] MEDS ORDERED: NICOTINE 21 MG/24 HR PATCH.TD24 TD ONE (04:10)
[2017-08-03 04:35] LABS: ABSOLUTE EOSINOPHILS # (AUTO) 0.1 10^3/uL (0.0-0.6); ABSOLUTE LYMPHOCYTES (AUTO) 3.7 10^3/uL (0.5-4.7); ABSOLUTE MONOCYTES (AUTO) 0.4 10^3/uL (0.1-1.4); ABSOLUTE NEUT (AUTO) 4.3 10^3/uL (1.7-8.2); BASOPHILS % (AUTO) 0.4 % (0-2); EOSINOPHILS % (AUTO) 1.4 % (0-6); HEMATOCRIT 40.9 % (37.9-51.0); HEMOGLOBIN 14.9 g/dL (13.5-17.0); HGB HCT DIFFERENCE 3.8; LYMPHOCYTES % (AUTO) 42.9 % (13-45); MEAN CORPUSCULAR HEMOGLOBIN 35.5 pg (27.0-33.4); MEAN CORPUSCULAR HGB CONC 36.3 g/dL (32.0-36.0); MEAN CORPUSCULAR VOLUME 98 fl (80-97); MONOCYTES % (AUTO) 5.1 % (3-13); RED BLOOD COUNT 4.19 10^6/uL (4.35-5.55); RED CELL DISTRIBUTION WIDTH 15.4 % (11.5-14.0); SEGMENTED NEUTROPHILS % (AUTO) 50.2 % (42-78); WHITE BLOOD COUNT 8.6 10^3/uL (4.0-10.5)
[2017-08-03 04:47] LABS: APPEARANCE,URINE CLEAR; BILIRUBIN,URINE NEGATIVE (NEGATIVE); GLUCOSE, URINE NEGATIVE (NEGATIVE); KETONES,URINE NEGATIVE (NEGATIVE); LEUKOCYTE ESTERASE,URINE NEGATIVE (NEGATIVE); NITRITE,URINE NEGATIVE (NEGATIVE); PROTEIN,URINE 30 mg/dL (NEGATIVE); URINE SPECIFIC GRAVITY 1.005; UROBILINOGEN,URINE NEGATIVE mg/dL (<2.0)
[2017-08-03 04:49] LABS: ALANINE AMINOTRANSFERASE 39 U/L (21-72); ALBUMIN 5.1 g/dL (3.5-5.0); ALCOHOL 241 mg/dL (NONE DETECTED); ALKALINE PHOSPHATASE 89 U/L (38-126); ANION GAP 18 (5-19); ASPARTATE AMINO TRANSFERASE 36 U/L (17-59); BILIRUBIN,DIRECT 0.4 mg/dL (0.0-0.4); BILIRUBIN,TOTAL 0.4 mg/dL (0.2-1.3); BLOOD UREA NITROGEN 12 mg/dL (7-20); CALCIUM 9.5 mg/dL (8.4-10.2); CARBON DIOXIDE 23 mmol/L (22-30); CHLORIDE 106 mmol/L (98-107); CREATININE RESULT 1.15 mg/dL (0.52-1.25); GLUCOSE 93 mg/dL (75-110); SODIUM 146.8 mmol/L (137-145); TOTAL PROTEIN 7.8 g/dL (6.3-8.2)
[2017-08-03 05:02] LABS: URINE BARBITURATES SCREEN NEGATIVE; URINE METHADONE SCREEN NEGATIVE; URINE OPIATES LOW NEGATIVE; URINE PHENCYCLIDINE SCREEN NEGATIVE
[2017-08-03] MEDS ORDERED: DIAZEPAM INJ 10 MG/2 ML DISP.SYRIN IV ONE (05:47)
[2017-08-03] MEDS ORDERED: DIAZEPAM INJ 10 MG/2 ML DISP.SYRIN IM ONE (05:50)
[2017-08-03] MEDS ORDERED: ONDANSETRON 4 MG TAB.RAPDIS PO PRN (05:51)
--- NOTE | 2017-08-03 05:56 | ER Document Report ---
Doctor's Note Notes: 08/03/17 05:55 Patient has what appears to be some medical withdrawal. He has a slight tremor and he is tachycardic. I will give him a dose of Valium 5 mg IM now and also place him from going into full withdrawal. Patient otherwise is awake and alert and answers all questions appropriately and is acting appropriately.
[2017-08-03] MEDS ORDERED: LORAZEPAM INJ 2 MG/ML VIAL (4 MG PRN DOSE) IV (06:30)
--- NOTE | 2017-08-03 08:03 | EKG REPORT ---
SEVERITY:- OTHERWISE NORMAL ECG - SINUS TACHYCARDIA : Confirmed by: Froilan Willingham 03-Aug-2017 08:03:03
[2017-08-03] MEDS: TRAMADOL HCL 50 MG TABLET PO SCH ×2 (09:35→15:53)
[2017-08-03] MEDS: LORAZEPAM 1 MG TABLET (TAPER DOSING) PO SCH ×2 (09:37→15:13)
[2017-08-03] MEDS ORDERED: THIAMINE HCL 100 MG TABLET PO SCH (10:00)
[2017-08-03] MEDS ORDERED: FOLIC ACID 1 MG TABLET PO SCH (10:00)
[2017-08-03] MEDS ORDERED: MULTIVITAMIN TABLET PO SCH (10:00)
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
[2017-08-03 16:23] VITALS: BP 128/79
[2017-08-03] MEDS ORDERED: ZOLPIDEM TARTRATE 5 MG TABLET PO SCH (22:00)
[2017-08-03] MEDS ORDERED: QUETIAPINE FUMARATE 100 MG TABLET PO SCH (22:00)
[2017-08-03] MEDS ORDERED: (PENDING PHARMACY ID) (Prazosin Hcl [Minipress] 2 MG) PO SCH (22:00)
== END 2017-08-03 16:09 ==
LOC: ER 00:19
DX: F10.239 Alcohol dependence with withdrawal, unspecified (principal); F10.20 Alcohol dependence, uncomplicated; F12.20 Cannabis dependence, uncomplicated; F43.10 Post-traumatic stress disorder, unspecified; Z79.899 Other long term (current) drug therapy; F17.200 Nicotine dependence, unspecified, uncomplicated
CPT/HCPCS: 93005; 99284; 36415; 80307 ×4; 85025; 80053; 81001; 93010; J3360; S0119